=== PATIENT | male | born 1935 | race Two or more races ===

== ENCOUNTER 2025-01-17 02:07 | Inpatient (IN) | payer OTHER, MEDICARE ==
[~2025-01-17] VITALS: Ht 167.6 cm; Wt 85.5 kg
[2025-01-17] VITALS (7 sets, daily range): BP systolic 85–101; BP diastolic 49–58; PULSE 63–82; RESP 16–18; TEMP 98; O2SAT 99–100
[2025-01-17 03:04] LABS: Hematocrit 36.2 % (41.0-53.0); Hemoglobin 11.3 g/dL (13.5-17.5); Mean Corpuscular Hemoglobin 30.3 pg (28.0-32.0); Mean Corpuscular Volume 97.0 fL (80.0-100.0); Nucleated Red Blood Cells % 0.1 %
--- NOTE | 2025-01-17 03:11 | DVH ---
CHEST RADIOGRAPH Indication: aloc Technique: 1 view Comparison: None FINDINGS: Lines and Tubes: None Lungs: Scattered coarse reticular opacities most pronounced in the lung bases. No focal consolidatio n. Pleura: No effusion or pneumothorax. Cardiomediastinal contours: Upper normal heart size. Aortic atherosclerosis. Bones: No acute osseous abnormality. IMPRESSION: 1. Coarse bilateral interstitial opacities suggestive of edema or pneumonitis. No consolidation. Netta elizbaeth cardiomegaly.
--- NOTE | 2025-01-17 03:18 | DVH ---
EXAM: CT HEAD WITHOUT CONTRAST INDICATION: aloc TECHNIQUE: CT of the head without intravenous contrast. Radiation Dose Information: CT Dose: Dose-length product is 877 mGy*cm The dose indicators for CT are the volume Computed Tomography (CT) Dose Index (CTDIvol) and the Dose Length Product (DLP), and are measured in units of mGy and mGy-cm, respectively. These indicators are not patient dose, but values generated from the CT scanner acquisition factors. The report includes radiation exposure data for exposures received during this examination. COMPARISON: None FINDINGS: There is no evidence of acute intracranial hemorrhage, extra-axial collection, mass effect, midline s hift, herniation or hydrocephalus. The ventricles, sulci and cisterns are age appropriate. The patel-white differentiation is intact. Patchy periventricular and subcortical white matter hypoattenuation is nonspecific but may be related to small vessel ischemic disease. Age-related cerebral atrophy. The visualized paranasal sinuses and mastoid air cells are clear. The surrounding soft tissues and osseous structures are unremarkable. IMPRESSION: 1. No acute intracranial abnormality.
[2025-01-17 03:19] LABS: Alanine Aminotransferase < 9 U/L (7-40); Albumin 3.6 g/dL (3.2-4.8); Alkaline Phosphatase 178 U/L (46-116); Anion Gap 11 (5-15); BUN/Creatinine Ratio 3.3 (10.0-20.0); Bilirubin, Total 0.6 mg/dL (0.2-1.0); Blood Urea Nitrogen 19 mg/dL (9-23); Calcium 7.8 mg/dL (8.7-10.4); Carbon Dioxide 26 mmol/L (20-31); Chloride 105 mmol/L (98-107); Glucose 114 mg/dL (74-106); Potassium 3.5 mmol/L (3.5-5.1); Sodium 142 mmol/L (136-145); Total Protein 6.3 g/dL (5.7-8.2)
--- NOTE | 2025-01-17 04:11 | ED.PDOC ---
History of Present Illness HPI Comments 89 y/o M is BIBA from home for c/c AMS and headache. 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 Per EMS report, patient's /international guest coordinator called for 5x day history of headache. Today patient was noted to be lethargic and somnolent. He is reportedly normally extremely talkative. Usual baseline reported to be A&Ox4. No reported fever, urinary symptoms, nausea, vomiting, diarrhea, chest pain, shortness of breath, or further associated symptoms. Chief Complaint: ALOC Time Seen by MD: 02:20 Reviewed Notes: Nurses Notes, Charge Histotechnologist Notes, Medications, Allergies Allergies: Coded Allergies: NO KNOWN ALLERGIES (Unverified , 01/17/25) Information Source: Patient, Emergency Med Personnel Mode of Arrival: EMS Severity: Moderate Timing: Hours Duration: Since onset Prehospital treatment: 12 Lead EKG, Accucheck, Cotton Weigher Operator Past Medical History PAST MEDICAL HISTORY: AFIB, CVA, DM, HTN Surgical History: Denies all surgeries Family History Family History: Unknown Social History Smoker: Non-Smoker Alcohol: Denies ETOH Use Drugs: Denies Drug Use Lives In: Home, Assisted Care Unable to Obtain due to: Altered Mental Status Physical Exam General Appearance: No Apparent Distress, Other (Somnolent) HEENT: Other (Pupils and face symmetric. Moist mucous membranes.) Neck: Full Range of Motion, Normal Inspection Respiratory: Lungs Clear, No Accessory Muscle Use, No Respiratory Distress, Normal Breath Sounds Cardiovascular: No Edema, No JVD, Regular Rate/Rhythm Breast Exam: Deferred Gastrointestinal: Non Tender, Soft Genitalia: Deferred Pelvic: Deferred Rectal: Deferred Extremities: Normal inspection, Normal range of motion, Non-tender Neurologic: Other (Very somnolent, moves all extremities, minimally verbal) Cerebellar Function: NOT DONE Reflexes: NOT DONE Skin: Dry, Normal Color, Warm Lymphatic: NOT DONE Was a procedure done? Was a procedure done?: No EKG EKG : Comments AFib, rate 72, QRS prolonged at 152, QTC prolonged at 529, left axis deviation, old inferior infarct, nonspecific T change. Differential Dx Considerations may include: CVA, TIA, metabolic Encephalopathy, drug overdose, dehydration, electrolyte imbalance, viral syndrome, UTI, among others X-Ray, Labs, Meds, VS Vital Signs Date Time Temp Pulse Resp B/P (MAP) Pulse Ox O2 Delivery O2 Flow Rate FiO2 01/17/25 02:21 72 01/17/25 02:13 99.8 85 16 109/56 98 99.8 Lab Test 01/17/25 02:51 Range/Units White Blood Count 6.6 4.4-10.8 10^3/uL Red Blood Count 3.73 L 4.5-5.90 10^6/uL Hemoglobin 11.3 L 13.5-17.5 g/dL Hematocrit 36.2 L 41.0-53.0 % Mean Corpuscular Volume 97.0 80.0-100.0 fL Mean Corpuscular Hemoglobin 30.3 28.0-32.0 pg Mean Corpuscular Hemoglobin Concent 31.2 L 32.0-36.0 g/dL Red Cell Distribution Width 19.0 H 11.8-14.3 % Platelet Count 127 L 140-450 10^3/uL Mean Platelet Volume 9.0 6.9-10.8 fL Neutrophils (%) (Auto) 57.8 37.0-80.0 % Lymphocytes (%) (Auto) 19.6 10.0-50.0 % Monocytes (%) (Auto) 17.8 H 0.0-12.0 % Eosinophils (%) (Auto) 4.1 0.0-7.0 % Basophils (%) (Auto) 0.7 0.0-2.0 % Neutrophils # (Auto) 3.8 1.6-8.6 10 ^3/uL Lymphocytes # (Auto) 1.3 0.4-5.4 10 ^3/uL Monocytes # (Auto) 1.2 0-1.3 10 ^3/uL Eosinophils # (Auto) 0.3 0-0.8 10 ^3/uL Basophils # (Auto) 0 0-0.2 10 ^3/uL Nucleated Red Blood Cells 0.1 % Sodium Level 142 136-145 mmol/L Potassium Level 3.5 3.5-5.1 mmol/L Chloride Level 105 98-107 mmol/L Carbon Dioxide Level 26 20-31 mmol/L Anion Gap 11 5-15 Blood Urea Nitrogen 19 9-23 mg/dL Creatinine 5.74 H 0.700-1.30 mg/dL Glomerular Filtration Rate Calc 9 >90 mL/min BUN/Creatinine Ratio 3.3 L 10.0-20.0 Serum Glucose 114 H 74-106 mg/dL Lactic Acid Level 1.2 0.4-2.0 mmol/L Calcium Level 7.8 L 8.7-10.4 mg/dL Total Bilirubin 0.6 0.2-1.0 mg/dL Aspartate Amino Transferase (AST) 24 13-40 U/L Alanine Aminotransferase (ALT) < 9 7-40 U/L Alkaline Phosphatase 178 H 46-116 U/L Troponin I High Sensitivity 13 </=54 ng/L Total Protein 6.3 5.7-8.2 g/dL Albumin 3.6 3.2-4.8 g/dL Plasma/Serum Blood Alcohol < 3.0 <10 mg/dL [place] [id number] Ph: [phone] DIAGNOSTIC IMAGING Diagnostic Imaging Report : [id number] Signed PATIENT: CINDY CORTES ACCT: [id number] UNIT: [id number] : 1935 LOC: ER ROOM / BED: / AGE / SEX: 89 / M ADM STATUS: REG ER SERVICE 6 ORDERING PHYSICIAN: LAURI DIOP MD PROCEDURE(s): HWOCT - HEAD WITHOUT CONTRAST REASON: aloc ORDER NUMBER(s): [id number], ACCESSION NUMBER(s): [id number] EXAM: CT HEAD WITHOUT CONTRAST INDICATION: aloc TECHNIQUE: CT of the head without intravenous contrast. Radiation Dose Information: CT Dose: Dose-length product is 877 mGy*cm The dose indicators for CT are the volume Computed Tomography (CT) Dose Index (CTDIvol) and the Dose Length Product (DLP), and are measured in units of mGy and mGy-cm, respectively. These indicators are not patient dose, but values generated from the CT scanner acquisition factors. The report includes radiation exposure data for exposures received during this examination. COMPARISON: None FINDINGS: There is no evidence of acute intracranial hemorrhage, extra-axial collection, mass effect, midline shift, herniation or hydrocephalus. The ventricles, sulci and cisterns are age appropriate. The patel-white differentiation is intact. Patchy periventricular and subcortical white matter hypoattenuation is nonspecific but may be related to small vessel ischemic disease. Age-related cerebral atrophy. The visualized paranasal sinuses and mastoid air cells are clear. The surrounding soft tissues and osseous structures are unremarkable. IMPRESSION: 1. No acute intracranial abnormality. ATED BY: PRADIP ANDREWS MD DICTATED DATE/TIME: 01/17/25316 SIGNED BY: PRADIP ANDREWS MD SIGNED DATE/TIME: 01/17/25316 CC: [place] [id number] Ph: [phone] DIAGNOSTIC IMAGING Diagnostic Imaging Report : [id number] Signed PATIENT: CINDY CORTES ACCT: [id number] UNIT: [id number] : 1935 LOC: ER ROOM / BED: / AGE / SEX: 89 / M ADM STATUS: REG ER SERVICE 6 ORDERING PHYSICIAN: LAURI DIOP MD PROCEDURE(s): CXRP - CHEST PORTABLE REASON: aloc ORDER NUMBER(s): [id number], ACCESSION NUMBER(s): [id number] CHEST RADIOGRAPH Indication: aloc Technique: 1 view Comparison: None FINDINGS: Lines and Tubes: None Lungs: Scattered coarse reticular opacities most pronounced in the lung bases. No focal consolidation. Pleura: No effusion or pneumothorax. Cardiomediastinal contours: Upper normal heart size. Aortic atherosclerosis. Bones: No acute osseous abnormality. IMPRESSION: 1. Coarse bilateral interstitial opacities suggestive of edema or pneumonitis. No consolidation. Borderline cardiomegaly. 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 Coarse bilateral interstitial opacities suggestive of edema or pneumonitis. No consolidation. Borderline cardiomegaly. CBC unremarkable, basic metabolic panel remarkable for creatinine 5.74, lactate normal, troponin negative, BNP pending, ammonia, UA and urine drug screen pending Patient treated with the following in the ED: Rocephin 1 g IV, Zithromax 500 mg IV On re-evaluation, patient is somnolent but arousable. Vitals were stable. Plan is to admit the patient for IV antibiotics and neurology evaluation. Time of 1ST Reevaluation: 02:50 Reevaluation 1ST: Unchanged Patient Education/Counseling: Diagnosis, Treatment, Need For Follow Up Family Education/Counseling: No Family Present SEPSIS Sepsis Screen Date sepsis recognized/suspect: Jan 17, 2025 Time Sepsis recognized/suspect: 212 Recent Procedure: No On Antibiotic Therapy: No Respiratory Rate >20: No Heart Rate >90: No Temp<36 C (96.8 F) or >38.3 C: No SBP <90 or MAP <65 mmHG: No New Acute Mental Status Change: No Is the patient on CPAP, BIPAP,: No Physician Orders Urinalysis (01/17/25 02:27) Chest Portable (01/17/25 02:27) Head Without Contrast (01/17/25 02:27) Drug Screen (01/17/25 02:27) Cotton Weigher Operator (01/17/25 02:27) Blood Culture (01/17/25 02:27) Urine Bacterial Culture (01/17/25 02:27) Ammonia (01/17/25 02:27) Troponin-I Hs (01/17/25 03:27) Troponin-I Hs (01/17/25 05:27) Electrocardigram (01/17/25 02:36) Azithromycin 500mg/ 250ml (Zithromax 50 (01/17/25 05:45) B-Type Natriuretic Peptide (01/17/25 05:32) Vital Signs Date Time Temp Pulse Resp B/P (MAP) Pulse Ox O2 Delivery O2 Flow Rate FiO2 01/17/25 02:21 72 01/17/25 02:13 99.8 85 16 109/56 98 99.8 Laboratory Tests Test 01/17/25 02:51 Lactic Acid Level 1.2 mmol/L (0.4-2.0) White Blood Count 6.6 10^3/uL (4.4-10.8) Departure 1 Departure Time of Disposition: 05:33 Impression: Primary Impression: Pneumonitis Additional Impression: Metabolic encephalopathy Disposition: 09 ADMITTED INPATIENT Admit to: Tele Condition: Guarded Critical Care Note Critical Care Time?: No Stability Stability form required: No Heart Score Heart Score: Heart Score Response (Comments) Value History N/A 0 EKG N/A 0 Age N/A 0 Risk Factors N/A 0 Troponin N/A 0 Total 0 I personally scribed for LAURI DIOP MD ([email or web address]) on 01/17/25 at 04:11. Electronically submitted by Enzo Atkins [email or web address]). LAURI DIOP MD Jan 17, 2025 04:11
--- NOTE | 2025-01-17 08:03 | ECG ---
[facility] Test Date: 2025-01-17 Test Time: 02:21:15 Pat Name: KARINA CORTES Department: ED Room: [address] [place] [address] Gender: M Senior Quality Analyst: ED : 1935 Requested By: LAURI MUELLER Order Number: [id number] Reading MD: Howie Mac Measurements Intervals Counselor Rate: 72 P: 0 ND: 0 QRS: -134 QRSD: 152 T: 6 QT: 483 QTc: 529 Interpretive Statements Atrial fibrillation Right bundle branch block Inferior infarct, old Lateral leads are also involved Baseline wander in lead(s) V4 Electronically Signed On 01-17-2025 22:09:49 PDT by Howie Mac Please click the below link to view image of tracing.
[2025-01-17] MEDS ORDERED: DEXTROSE (50%) 50ML SYRG IV PRN (08:45)
--- NOTE | 2025-01-17 08:45 | DVHHP2 ---
History of Present Illness Reason for Visit: ALOC History of Present Illness Mahi Thompson is an 89-year-old male with past medical history of atrial fibrillation, hypertension, diabetes, and CVA who came to the hospital for altered level of consciousness. Patient is a poor historian and not able to provide much history. at the bedside states this weekend he was slurring a little and seemed a little confused. This morning he woke up complaining of se tara headache and requested to go to the hospital. 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 ROAD FORMS: CVA Renal/: Chronic renal failure (on HD) Endocrine: Diabetes Past Surgical History: Other (PTCA) Smoke: No ALCOHOL: none Drugs: None Lives: with Family Domestic Violence: Neg Review of Systems Constitutional: Yes: Weakness, Malaise, Other (headache); No: Fever, Chills, Sweats Eyes: No: Pain, Vision change, Conjunctivae inflammation, Eyelid inflammation, Other, Redness ENT: No: Ear pain, Ear discharge, Nose pain, Nose discharge, Nose congestion, Mouth pain, Mouth swelling, Throat pain, Throat swelling, Other Respiratory: No: Cough, Dry, Shortness of breath, SOB with excertion, Wheezing, Hemoptysis, Pleuritic Pain, Sputum, Wheezing, Other Cardiovascular: No: Chest Pain, Palpitations, Orthopnea, Paroxysmal Noc. Dyspnea, Edema, Lt Headedness, Other Gastrointestinal: No: Nausea, Vomiting, Abdominal Pain, Diarrhea, Constipation, Melena, Hematochezia, Other Genitourinary: No Dysuria, No Frequency, No Incontinence, No Hematuria, No Retention, No Other Musculoskeletal: No: other, neck pain, shoulder pain, arm pain, back pain, hand pain, leg pain, foot pain Skin: No: Rash, Lesions, Jaundice, Bruising, Other Neurological: Confusion; No: Weakness, Numbness, Incoordination, Change in s peech, Seizures, Other Allergies: Coded Allergies: NO KNOWN ALLERGIES (Unverified , 01/17/25) Exam Vital Signs Vital Signs Date Time Temp Pulse Resp B/P (MAP) Pulse Ox O2 Delivery O2 Flow Rate FiO2 01/17/25 07:39 70 16 103/53 (70) 100 01/17/25 07:39 Room Air* 0 21 01/17/25 02:13 99.8 99.8 General Appearance: Alert, mild distress, Other (Oriented x 2) HEENT: Atraumatic, PERRLA Respiratory: Other (Diminshed breath sounds) Cardiovascular: Normal S1, Normal S2 Abdominal: Normal bowel sounds, Soft, No tenderness Extremities: No clubbing, No cyanosis, Normal pulses Skin: No rashes, No breakdown Neuro: Other (Usually ambulates with cane or walker, too weak at this time to ambulate) Psych/Mental Status: Other (confused) Labs/Xrays Labs Test 01/17/25 07:55 01/17/25 02:51 Range/Units White Blood Count 6.6 4.4-10.8 10^3/uL Red Blood Count 3.73 L 4.5-5.90 10^6/uL Hemoglobin 11.3 L 13.5-17.5 g/dL Hematocrit 36.2 L 41.0-53.0 % Mean Corpuscular Volume 97.0 80.0-100.0 fL Mean Corpuscular Hemoglobin 30.3 28.0-32.0 pg Mean Corpuscular Hemoglobin Concent 31.2 L 32.0-36.0 g/dL Red Cell Distribution Width 19.0 H 11.8-14.3 % Platelet Count 127 L 140-450 10^3/uL Mean Platelet Volume 9.0 6.9-10.8 fL Neutrophils (%) (Auto) 57.8 37.0-80.0 % Lymphocytes (%) (Auto) 19.6 10.0-50.0 % Monocytes (%) (Auto) 17.8 H 0.0-12.0 % Eosinophils (%) (Auto) 4.1 0.0-7.0 % Basophils (%) (Auto) 0.7 0.0-2.0 % Neutrophils # (Auto) 3.8 1.6-8.6 10 ^3/uL Lymphocytes # (Auto) 1.3 0.4-5.4 10 ^3/uL Monocytes # (Auto) 1.2 0-1.3 10 ^3/uL Eosinophils # (Auto) 0.3 0-0.8 10 ^3/uL Basophils # (Auto) 0 0-0.2 10 ^3/uL Nucleated Red Blood Cells 0.1 % Sodium Level 142 136-145 mmol/L Potassium Level 3.5 3.5-5.1 mmol/L Chloride Level 105 98-107 mmol/L Carbon Dioxide Level 26 20-31 mmol/L Anion Gap 11 5-15 Blood Urea Nitrogen 19 9-23 mg/dL Creatinine 5.74 H 0.700-1.30 mg/dL Glomerular Filtration Rate Calc 9 >90 mL/min BUN/Creatinine Ratio 3.3 L 10.0-20.0 Serum Glucose 114 H 74-106 mg/dL Lactic Acid Level 1.2 0.4-2.0 mmol/L Calcium Level 7.8 L 8.7-10.4 mg/dL Total Bilirubin 0.6 0.2-1.0 mg/dL Aspartate Amino Transferase (AST) 24 13-40 U/L Alanine Aminotransferase (ALT) < 9 7-40 U/L Alkaline Phosphatase 178 H 46-116 U/L Total Protein 6.3 5.7-8.2 g/dL Albumin 3.6 3.2-4.8 g/dL Plasma/Serum Blood Alcohol < 3.0 <10 mg/dL CHEST RADIOGRAPH FINDINGS: Lines and Tubes: None Lungs: Scattered coarse reticular opacities most pronounced in the lung bases. No focal consolidation. Pleura: No effusion or pneumothorax. Cardiomediastinal contours: Upper normal heart size. Aortic atherosclerosis. Bones: No acute osseous abnormality. IMPRESSION: 1. Coarse bilateral interstitial opacities suggestive of edema or pneumonitis. No consolidation. Borderline cardiomegaly. EXAM: CT HEAD WITHOUT CONTRAST COMPARISON: None FINDINGS: There is no evidence of acute intracranial hemorrhage, extra-axial collection, mass effect, midline shift, herniation or hydrocephalus. The ventricles, sulci and cisterns are age appropriate. The patel-white differentiation is intact. Patchy periventricular and subcortical white matter hypoattenuation is nonspecific but may be related to small vessel ischemic disease. Age-related cerebral atrophy. The visualized paranasal sinuses and mastoid air cells are clear. The surrounding soft tissues and osseous structures are unremarkable. IMPRESSION: 1. No acute intracranial abnormality. SEPSIS Sepsis Screen Date sepsis recognized/suspect: Jan 17, 2025 Time Sepsis recognized/suspect: 0739 Recent Procedure: No On Antibiotic Therapy: No Respiratory Rate >20: No Heart Rate >90: No Temp<36 C (96.8 F) or >38.3 C: No SBP <90 or MAP <65 mmHG: No New Acute Mental Status Change: Yes Is the patient on CPAP, BIPAP,: No Physician Orders Urinalysis (01/17/25 02:27) Chest Portable (01/17/25 02:27) Head Without Contrast (01/17/25 02:27) Drug Screen (01/17/25 02:27) Radius Corner Machine Operator (01/17/25 02:27) Blood Culture (01/17/25 02:27) Urine Bacterial Culture (01/17/25 02:27) Ammonia (01/17/25 02:27) Troponin-I Hs (01/17/25 03:27) Troponin-I Hs (01/17/25 05:27) B-Type Natriuretic Peptide (01/17/25 05:32) Vital Signs Date Time Temp Pulse Resp B/P (MAP) Pulse Ox O2 Delivery O2 Flow Rate FiO2 01/17/25 07:39 70 16 103/53 (70) 100 01/17/25 07:39 70 16 100 Room Air* 0 21 01/17/25 02:21 72 01/17/25 02:13 99.8 85 16 109/56 98 99.8 Laboratory Tests Test 01/17/25 02:51 Lactic Acid Level 1.2 mmol/L (0.4-2.0) White Blood Count 6.6 10^3/uL (4.4-10.8) Assessment/Plan Assessment/Plan Assessment: Metabolic encephalopathy, Pneumonitis, ESRD on HD, Possible pneumonia, Hypertension, Diabetes, Plan: Admit to Med-Surg, Nephrology consult, IV antibiotics, Breathing treatments as needed, Accu checks Q AC&HS with sliding scale, Physical therapy evaluation, Home medications reconciled, Plan discussed with: Patient, Spouse Date of Service: Jan 17, 2025 Billing Provider: JAVY STONE Common Visit Codes: [id number] INP/OBS CARE (MOD) JAVY STONE Jan 17, 2025 08:45
[2025-01-17] MEDS: cefTRIAXone 1GM/50ML D5W 50 ML IV ONE (09:50)
[2025-01-17] MEDS: AZITHROMYCIN 500MG/ 250ML 250 ML IV ONE (10:30)
[2025-01-17] MEDS: ACCU-CHEK COMFORT CURVE STRIP VI SCH (11:30)
[2025-01-17] MEDS: InsuLIN REG 1unit/0.01ml Soln (100units/ml) SC SCH ×2 (11:30→22:00)
--- NOTE | 2025-01-17 13:27 | DVHPN2 ---
Subjective 89-year-old male who was brought to the hospital due to confusion for few days He fell a week ago He was fed and shortness of breaths and some cough Changes from previous H/P or p: Changes Eyes: No Pain, No Vision change, No Conjunctivae inflammation, No Eyelid inflammation, No Other, No Redness ENT: No Ear pain, No Ear discharge, No Nose pain, No Nose discharge, No Nose congestion, No Mouth pain, No Mouth swelling, No Throat pain, No Throat swelling, No Other Cardiovascular: No Chest Pain, No Palpitations, No Orthopnea, No Paroxysmal Noc. Dyspnea, No Edema, No Lt Headedness, No Other Respiratory: No Cough, No Dry, No Shortness of breath, No SOB with excertion, No Wheezing, No Hemoptysis, No Pleuritic Pain, No Sputum, No Other Gastrointestinal: No Nausea, No Vomiting, No Abdominal Pain, No Diarrhea, No Constipation, No Melena, No Hematochezia, No Other Genitourinary: No Dysuria, No Frequency, No Incontinence, No Hematuria, No Retention, No Other Musculoskeletal: No other, No neck pain, No shoulder pain, No arm pain, No back pain, No hand pain, No leg pain, No foot pain Skin: No Rash, No Lesions, No Jaundice, No Bruising, No Other Objective Vitals Vital Signs Date Time Temp Pulse Resp B/P (MAP) Pulse Ox O2 Delivery O2 Flow Rate FiO2 01/17/25 12:30 71 15 102/52 (69) 99 01/17/25 07:39 Room Air* 0 21 01/17/25 02:13 99.8 99.8 General Appearance: Alert, Oriented X3, Cooperative Lungs: Clear to auscultation, Normal air movement Cardiovascular: Regular rate, Normal S1, Normal S2 Abdomen: Normal bowel sounds, Soft, No tenderness Extremities: No edema Medications Current Medications Medications Dose Ordered Sig/Dwight Route Start Time Stop Time Status Last Admin Dose Admin Sodium Chloride 10 ml Q8HR IV 01/17/25 14:00 Acetaminophen/ Hydrocodone Bitart 1 tab Q4HP PRN PO 01/17/25 08:30 Ondansetron HCl 4 mg Q4HP PRN IV 01/17/25 08:30 Docusate Sodium 100 mg BIDPRN PRN PO 01/17/25 08:30 Acetaminophen 650 mg Q6HP PRN PO 01/17/25 08:30 Diagnostic Test (Pha) 1 strip ACHS 01/17/25 11:30 01/17/25 11:30 1 STRIP Insulin Human Regular HS SC 01/17/25 22:00 Insulin Human Regular AC SC 01/17/25 11:30 Dextrose 50 ml UD PRN IV 01/17/25 08:45 Ceftriaxone Sodium 50 ml @ 100 mls/hr DAILY@09 IV 01/18/25 09:00 Doxycycline Hyclate 100 ml @ 100 mls/hr BID IV 01/17/25 22:00 Laboratory Results Laboratory Tests 01/17/25 02:51 Chemistry Test 01/17/25 02:51 Albumin 3.6 g/dL (3.2-4.8) Calcium Level 7.8 mg/dL (8.7-10.4) L Total Protein 6.3 g/dL (5.7-8.2) Cardiac Markers Test 01/17/25 11:21 B-Type Natriuretic Peptide 727.46 pg/mL (0-100) LFT Test 01/17/25 02:51 Alanine Aminotransferase (ALT) < 9 U/L (7-40) Alkaline Phosphatase 178 U/L (46-116) H Aspartate Amino Transferase (AST) 24 U/L (13-40) Total Bilirubin 0.6 mg/dL (0.2-1.0) Assessment/Plan Assessment/Plan Acute metabolic encephalopathy Bilateral pneumonia End-stage renal disease on hemodialysis Hypertension Atrial fibrillation Old CVA Type 2 diabetes Chronic anemia of chronic kidney disease Plan IV antibiotics Rocephin and doxycycline Nephrology consult for dialysis Watch closely Physical therapy evaluation Discussed with the at the bedside Full code Advance directives discussed for 18 minutes Plan discussed with: Patient My Orders Orders - IONA CARBAJAL MD Procedure Category Date Status Time *[facility]. [facility] -[facility] CONS 01/17/25 Verified Jennifer 13:23 Date of Service: Jan 17, 2025 Billing Provider: IONA CARBAJAL MD Common Visit Codes: [id number] INP/OBS CARE(HIGH) Secondary Visit Codes: [id number] CARE PLAN 30 MINUTES IONA CARBAJAL MD Jan 17, 2025 13:27
[2025-01-17] MEDS: SODIUM CHLOR 0.9% PF (SALINE LOCK) 10ML VIAL/SYR IV SCH (14:25)
--- NOTE | 2025-01-17 14:41 | DVHINCON2 ---
Date of service: Jan 17, 2025 Referring Physician Patrica LEONARD Reason for Consultation End-stage renal disease management History of Present Illness 89-year-old patient with significant history of end-stage renal disease on hemodialysis Friday with last dialysis on Friday, atrial fibrillation, hypertension, CVA, diabetes type 2, hyperlipidemia who presents to the hospital because of altered mental status and complaining also of headache and mild shortness of breath. The patient is accompanied by his who is at bedside. Evaluation revealed no acute intracranial process, chest x-ray with pulmonary edema and labs consistent with end-stage renal disease status. Past Medical History End-stage renal disease, hypertension, hyperlipidemia, CVA, anemia Past Surgical History Av fistula creation Allergies: Coded Allergies: NO KNOWN ALLERGIES (Unverified , 01/17/25) Current Medications Current Medications Medications (Trade) Dose Ordered Sig/Dwight Route PRN Reason Start Time Stop Time Status Last Admin Sodium Chloride (Saline Lock Ns) 10 ml Q8HR IV 01/17/25 14:00 01/17/25 14:25 Acetaminophen/ Hydrocodone Bitart ([place] 5/325MG Tab) 1 tab Q4HP PRN PO MODERATE PAIN (4-6 PAIN SCALE) 01/17/25 08:30 Ondansetron HCl (Zofran) 4 mg Q4HP PRN IV NAUSEA / VOMITING 01/17/25 08:30 Docusate Sodium (Colace Capsule) 100 mg BIDPRN PRN PO FOR CONSTIPATION 01/17/25 08:30 Acetaminophen (Tylenol Tablet) 650 mg Q6HP PRN PO PAIN SCALE 1-3 OR TEMP>100.4 01/17/25 08:30 Diagnostic Test (Pha) (Accu-Chek Comfort Curve T) 1 strip ACHS 01/17/25 11:30 01/17/25 11:30 Insulin Human Regular (InsuLIN R) HS SC 01/17/25 22:00 Insulin Human Regular (InsuLIN R) AC SC 01/17/25 11:30 Dextrose 50 ml UD PRN IV Blood Sugar LESS THAN 60 01/17/25 08:45 Azithromycin 250 ml @ 125 mls/hr DAILY IV 01/18/25 10:00 01/17/25 10:21 DC Ceftriaxone Sodium 50 ml @ 100 mls/hr DAILY@09 IV 01/18/25 09:00 Doxycycline Hyclate 100 ml @ 100 mls/hr BID IV 01/17/25 22:00 Family History Unable to obtain patient is confused Social History He lives with his denies any smoking alcohol or drug abuse Review of Systems HEENT: Oral mucosa dry Neck no JVD Cardiovascular: Denies for chest pain denies orthopnea or PND Respiratory: Positive for or shortness of breath Gastrointestinal: Denies for nausea vomiting Musculoskeletal: Denies myalgias Neurological: Positive for generalized weakness, confusion Dermatological: Denies any rash The rest of the review of systems were reviewed pertinent positives and pertinent negatives are as per HPI up to 12 points review of systems H&P Exam Vital Signs/I&O Vital Sign Date Time Temp Pulse Resp B/P (MAP) Pulse Ox O2 Delivery O2 Flow Rate FiO2 01/17/25 12:30 71 15 102/52 (69) 99 01/17/25 07:39 Room Air* 0 21 01/17/25 02:13 99.8 99.8 Physical Exam HEENT: No evidence of JVD, no oral ulcers. Pulmonary: Lungs are clear on auscultation bilaterally Cardiovascular S1-S2, no S3 or S4 Abdomen: Bowel sounds positive, soft no rebound tenderness Skin: No rash Neurological: Alert, disoriented Labs/Diagnostic Data Labs/Diagnostic Data Laboratory Tests Test 01/17/25 11:21 01/17/25 07:55 01/17/25 02:51 Range/Units Ammonia < 10 L 11-32 umol/L Troponin I High Sensitivity 18 14 13 </=54 ng/L B-Type Natriuretic Peptide 727.46 0-100 pg/mL White Blood Count 6.6 4.4-10.8 10^3/uL Red Blood Count 3.73 L 4.5-5.90 10^6/uL Hemoglobin 11.3 L 13.5-17.5 g/dL Hematocrit 36.2 L 41.0-53.0 % Mean Corpuscular Volume 97.0 80.0-100.0 fL Mean Corpuscular Hemoglobin 30.3 28.0-32.0 pg Mean Corpuscular Hemoglobin Concent 31.2 L 32.0-36.0 g/dL Red Cell Distribution Width 19.0 H 11.8-14.3 % Platelet Count 127 L 140-450 10^3/uL Mean Platelet Volume 9.0 6.9-10.8 fL Neutrophils (%) (Auto) 57.8 37.0-80.0 % Lymphocytes (%) (Auto) 19.6 10.0-50.0 % Monocytes (%) (Auto) 17.8 H 0.0-12.0 % Eosinophils (%) (Auto) 4.1 0.0-7.0 % Basophils (%) (Auto) 0.7 0.0-2.0 % Neutrophils # (Auto) 3.8 1.6-8.6 10 ^3/uL Lymphocytes # (Auto) 1.3 0.4-5.4 10 ^3/uL Monocytes # (Auto) 1.2 0-1.3 10 ^3/uL Eosinophils # (Auto) 0.3 0-0.8 10 ^3/uL Basophils # (Auto) 0 0-0.2 10 ^3/uL Nucleated Red Blood Cells 0.1 % Sodium Level 142 136-145 mmol/L Potassium Level 3.5 3.5-5.1 mmol/L Chloride Level 105 98-107 mmol/L Carbon Dioxide Level 26 20-31 mmol/L Anion Gap 11 5-15 Blood Urea Nitrogen 19 9-23 mg/dL Creatinine 5.74 H 0.700-1.30 mg/dL Glomerular Filtration Rate Calc 9 >90 mL/min BUN/Creatinine Ratio 3.3 L 10.0-20.0 Serum Glucose 114 H 74-106 mg/dL Lactic Acid Level 1.2 0.4-2.0 mmol/L Calcium Level 7.8 L 8.7-10.4 mg/dL Total Bilirubin 0.6 0.2-1.0 mg/dL Aspartate Amino Transferase (AST) 24 13-40 U/L Alanine Aminotransferase (ALT) < 9 7-40 U/L Alkaline Phosphatase 178 H 46-116 U/L Total Protein 6.3 5.7-8.2 g/dL Albumin 3.6 3.2-4.8 g/dL Plasma/Serum Blood Alcohol < 3.0 <10 mg/dL Chest x-ray pulmonary edema, CT scan of the head without contrast no acute intracranial process Assessment Assessment: End-stage renal disease on hemodialysis Friday Acute metabolic encephalopathy Pulmonary edema Concerns for pneumonia Hypertension History of CVA Anemia Plan Dialysis today and Friday Fluid restriction less than 1 L per day Antibiotics have been ordered by primary team PT evaluation recommended Low-potassium diet Monitor CMP and CVC daily Thank you very much for allowing us to participate in the care of this patient Plan discussed with: Patient, Spouse KISHAN BARNES MD Jan 17, 2025 14:41
[2025-01-17] MEDS: SODIUM CHL 0.9% 1000 ML BAG XX ONE (14:45)
[2025-01-17] MEDS ORDERED: IPRATROPIUM BROM 0.5 MG/2.5ML INH SOL NEB PRN (16:15)
[2025-01-17] MEDS ORDERED: ALBUTEROL SULF 2.5 MG/0.5ML(0.5%) NEB SOLN NEB PRN (16:15)
[2025-01-17] MEDS ORDERED: NIFE1TAB30 PO (16:19)
[2025-01-17] MEDS ORDERED: ATOR20TA50 PO (16:19)
[2025-01-17] MEDS ORDERED: METO-289 PO (16:19)
[2025-01-17] MEDS ORDERED: APIX2.5T PO (16:19)
[2025-01-17] MEDS ORDERED: ASPI81CH49 PO (16:19)
[2025-01-17] MEDS: HYDROcodone-ACET 5/325MG TAB PO PRN (20:42)
[2025-01-17] MEDS: APIXABAN 2.5 MG TAB PO SCH (21:41)
[2025-01-17] MEDS: ATORVASTATIN 20 MG TAB PO SCH (21:41)
[2025-01-17] MEDS: DOXYCYCLINE 100MG/100ML 100 ML IV SCH (21:42)
[2025-01-18] VITALS (9 sets, daily range): BP systolic 106–153; BP diastolic 65–76; PULSE 62–79; RESP 16–18; TEMP 97.5–98.3; O2SAT 96–100
[2025-01-18] MEDS ORDERED: VANCOMYCIN PER PHARMACY 0 MG IV SCH (09:30)
[2025-01-18] MEDS ORDERED: VANCOMYCIN 1GM/200ML PM 200 ML IV ONE (09:30)
--- NOTE | 2025-01-18 09:32 | DVHPN2 ---
Subjective He seems to be more alert and oriented today His blood culture is growing Gram-positive cocci in clusters and pairs Scheduled for dialysis today Changes from previous H/P or p: Changes Eyes: No Pain, No Vision change, No Conjunctivae inflammation, No Eyelid inflammation, No Other, No Redness ENT: No Ear pain, No Ear discharge, No Nose pain, No Nose discharge, No Nose congestion, No Mouth pain, No Mouth swelling, No Throat pain, No Throat swelling, No Other Cardiovascular: No Chest Pain, No Palpitations, No Orthopnea, No Paroxysmal Noc. Dyspnea, No Edema, No Lt Headedness, No Other Respiratory: No Cough, No Dry, No Shortness of breath, No SOB with excertion, No Wheezing, No Hemoptysis, No Pleuritic Pain, No Sputum, No Other Gastrointestinal: No Nausea, No Vomiting, No Abdominal Pain, No Diarrhea, No Constipation, No Melena, No Hematochezia, No Other Genitourinary: No Dysuria, No Frequency, No Incontinence, No Hematuria, No Retention, No Other Musculoskeletal: No other, No neck pain, No shoulder pain, No arm pain, No back pain, No hand pain, No leg pain, No foot pain Skin: No Rash, No Lesions, No Jaundice, No Bruising, No Other Objective Vitals Vital Signs Date Time Temp Pulse Resp B/P (MAP) Pulse Ox O2 Delivery O2 Flow Rate FiO2 01/18/25 08:47 97.9 79 16 120/76 (91) 100 97.9 01/18/25 06:30 Nasal Cannula 2.0 01/18/25 06:30 28 Intake/Output Intake and Output 01/18/25 07:00 Intake Total 520 ml Balance 520 ml Intake Oral 120 ml IV Total 400 ml General Appearance: Alert, Oriented X3, Cooperative Lungs: Clear to auscultation, Normal air movement Cardiovascular: Regular rate, Normal S1, Normal S2 Abdomen: Normal bowel sounds, Soft, No tenderness Extremities: No edema Medications Current Medications Medications Dose Ordered Sig/Dwight Route Start Time Stop Time Status Last Admin Dose Admin Sodium Chloride 10 ml Q8HR IV 01/17/25 14:00 01/18/25 06:16 10 ML Acetaminophen/ Hydrocodone Bitart 1 tab Q4HP PRN PO 01/17/25 08:30 01/17/25 20:42 1 TAB Ondansetron HCl 4 mg Q4HP PRN IV 01/17/25 08:30 Docusate Sodium 100 mg BIDPRN PRN PO 01/17/25 08:30 Acetaminophen 650 mg Q6HP PRN PO 01/17/25 08:30 Diagnostic Test (Pha) 1 strip ACHS 01/17/25 11:30 01/18/25 06:15 1 STRIP Insulin Human Regular HS SC 01/17/25 22:00 Insulin Human Regular AC SC 01/17/25 11:30 Dextrose 50 ml UD PRN IV 01/17/25 08:45 Ceftriaxone Sodium 50 ml @ 100 mls/hr DAILY@09 IV 01/18/25 09:00 Doxycycline Hyclate 100 ml @ 100 mls/hr BID IV 01/17/25 22:00 01/17/25 21:42 100 MLS/HR Ipratropium [place] 0.5 mg Q4HPRN PRN NEB 01/17/25 16:15 Albuterol 2.5 mg Q4HPRN PRN NEB 01/17/25 16:15 Apixaban 2.5 mg BID PO 01/17/25 22:00 01/17/25 21:41 2.5 MG Atorvastatin Calcium 20 mg HS PO 01/17/25 22:00 01/17/25 21:41 20 MG Metoprolol Succinate 50 mg DAILY PO 01/18/25 10:00 Aspirin 81 mg DAILY PO 01/18/25 10:00 Nifedipine 60 mg DAILY PO 01/18/25 10:00 Laboratory Results Laboratory Tests 01/17/25 02:51 Cardiac Markers Test 01/17/25 11:21 B-Type Natriuretic Peptide 727.46 pg/mL (0-100) Microbiology Microbiology Date/Time Source Procedure Growth Status 01/17/25 07:55 Blood Blood Culture - Preliminary Resulted Assessment/Plan Assessment/Plan Acute metabolic encephalopathy Bilateral pneumonia End-stage renal disease on hemodialysis Hypertension Atrial fibrillation Old CVA Type 2 diabetes Chronic anemia of chronic kidney disease Plan IV antibiotics Rocephin and doxycycline Nephrology consult for dialysis Watch closely Physical therapy evaluation Discussed with the at the bedside Full code Advance directives discussed for 18 minutes 01/18/2025: Bacteremia: Add vancomycin Pneumonia: Continue doxycycline and Rocephin End-stage renal disease: Dialysis today Labs are not done today yet Generalized weakness: Physical therapy recommended SNF but the patient does not want to go to a SNF, he says he can walk We will do another PT evaluation Plan discussed with: Patient, Spouse My Orders Orders - IONA CARBAJAL MD Procedure Category Date Status Time Pt Request For Service PT 01/17/25 Logged 13:26 Date of Service: Jan 18, 2025 Billing Provider: IONA CARBAJAL MD Common Visit Codes: [id number] INP/OBS CARE(HIGH) IONA CARBAJAL MD Jan 18, 2025 09:32
[2025-01-18] MEDS ORDERED: AZITHROMYCIN 500MG/ 250ML 250 ML IV SCH (10:00)
[2025-01-18] MEDS: METOPROLOL SUCCINATE XL 50 MG TAB PO SCH (10:00)
[2025-01-18] MEDS: ASPirin-EC 81 mg tab PO SCH (10:00)
[2025-01-18] MEDS: cefTRIAXone 1GM/50ML D5W 50 ML IV SCH (10:00)
[2025-01-18] MEDS: SODIUM CHL 0.9% 1000 ML BAG XX ONE (10:45)
[2025-01-18 11:42] LABS: Hemoglobin 8.2 g/dL (13.5-17.5)
[2025-01-18 11:43] LABS: Hematocrit 31.1 % (41.0-53.0); Mean Corpuscular Hemoglobin 31.0 pg (28.0-32.0); Mean Corpuscular Volume 117.6 fL (80.0-100.0)
--- NOTE | 2025-01-18 11:53 | DVHPN2 ---
Progress Note Date Seen: Jan 18, 2025 Medical Necessity Reason Pt with a Central, PICC or Fol: No Subjective Changes from previous H/P or p: No Changes Objective vital signs Vital Sign Date Time Temp Pulse Resp B/P (MAP) Pulse Ox O2 Delivery O2 Flow Rate FiO2 01/18/25 10:00 96 Nasal Cannula* 2 28 01/18/25 08:47 97.9 79 16 120/76 (91) 97.9 Total Intake and Output 01/17/25 01/17/25 01/18/25 15:00 23:00 07:00 Intake Total 300 ml 220 ml Balance 300 ml 220 ml medications Current Medications Medications Dose Ordered Sig/Dwight Route Start Time Stop Time Status Last Admin Dose Admin Sodium Chloride 10 ml Q8HR IV 01/17/25 14:00 01/18/25 06:16 10 ML Acetaminophen/ Hydrocodone Bitart 1 tab Q4HP PRN PO 01/17/25 08:30 01/17/25 20:42 1 TAB Ondansetron HCl 4 mg Q4HP PRN IV 01/17/25 08:30 Docusate Sodium 100 mg BIDPRN PRN PO 01/17/25 08:30 Acetaminophen 650 mg Q6HP PRN PO 01/17/25 08:30 Diagnostic Test (Pha) 1 strip ACHS 01/17/25 11:30 01/18/25 06:15 1 STRIP Insulin Human Regular HS SC 01/17/25 22:00 Insulin Human Regular AC SC 01/17/25 11:30 Dextrose 50 ml UD PRN IV 01/17/25 08:45 Ceftriaxone Sodium 50 ml @ 100 mls/hr DAILY@09 IV 01/18/25 09:00 01/18/25 10:00 100 MLS/HR Doxycycline Hyclate 100 ml @ 100 mls/hr BID IV 01/17/25 22:00 01/18/25 10:49 100 MLS/HR Ipratropium [place] 0.5 mg Q4HPRN PRN NEB 01/17/25 16:15 Albuterol 2.5 mg Q4HPRN PRN NEB 01/17/25 16:15 Apixaban 2.5 mg BID PO 01/17/25 22:00 01/17/25 21:41 2.5 MG Atorvastatin Calcium 20 mg HS PO 01/17/25 22:00 01/17/25 21:41 20 MG Metoprolol Succinate 50 mg DAILY PO 01/18/25 10:00 Aspirin 81 mg DAILY PO 01/18/25 10:00 Nifedipine 60 mg DAILY PO 01/18/25 10:00 Vancomycin HCl 0 ml @ 0 mls/hr UD IV 01/18/25 09:30 UNV Examination: GENERAL:Abnormal, CVS:Normal, ABDOMEN:Normal laboratory and microbiology Laboratory Tests 01/18/25 11:15 Test 01/18/25 11:15 Range/Units Serum Glucose Pending Microbiology Date/Time Source Procedure Growth Status 01/17/25 07:55 Blood Blood Culture - Preliminary Resulted Problem List/Assessment/Plan Problem List/Assessment/Plan 89-year-old male with past medical history of end-stage renal disease on hemodialysis presents to the hospital complaining of weakness. Was found to have bacteremia. End-stage renal disease Sepsis secondary to Gram-positive bacteremia Anemia due to chronic kidney disease Patient is started on vancomycin, daily measure trough levels . Sepsis workup including echo to rule out endocarditis Hemodialysis today Epogen 3 times a week Renal diet Avoid hypotension Plan discussed with: Patient My Orders My Orders Orders - TETE ROBERTS MD Procedure Category Date Status Time *[facility] CONS 01/17/25 Transmitted -[place] 18:56 Hemodialysis Orders ORDERS 01/18/25 Transmitted 10:31 Dialysis Nursing RAVINDER 01/18/25 In Process Message 10:31 Document Fluid Input RAVINDER 01/18/25 In Process And Outpu 10:31 Acute Hepatitis Panel LAB 01/18/25 In Process 10:31 Total Time (mins): 25 TETE ROBERTS MD Jan 18, 2025 11:53
[2025-01-18 12:51] LABS: Total Cells Counted 100.0 (100)
[2025-01-18 12:52] LABS: Macrocytosis Marked
[2025-01-18 14:19] LABS: Alkaline Phosphatase 74 U/L (46-116); Anion Gap 10 (5-15); Glucose 74 mg/dL (74-106)
[2025-01-18 14:23] LABS: BUN/Creatinine Ratio 4.6 (10.0-20.0)
[2025-01-18 14:27] LABS: Alanine Aminotransferase < 9 U/L (7-40); Albumin 2.0 g/dL (3.2-4.8); Bilirubin, Total 0.2 mg/dL (0.2-1.0); Blood Urea Nitrogen 20 mg/dL (9-23); Carbon Dioxide 18 mmol/L (20-31); Chloride 120 mmol/L (98-107); Potassium 3.5 mmol/L (3.5-5.1); Sodium 148 mmol/L (136-145); Total Protein 3.5 g/dL (5.7-8.2)
[2025-01-18 14:29] LABS: Calcium 4.0 mg/dL (8.7-10.4)
[2025-01-18] MEDS: VANCOMYCIN 1GM/200ML PM 200 ML IV ONE (15:17)
[2025-01-18 21:02] LABS: Calcium 8.1 mg/dL (8.7-10.4)
[2025-01-18] MEDS: EPOETIN ALFA-EPBX 4,000 UNIT/ML VIAL SC SCH (21:11)
[2025-01-19] VITALS (9 sets, daily range): BP systolic 97–140; BP diastolic 53–76; PULSE 63–82; RESP 16–18; TEMP 97.6–98.1; O2SAT 98–100
[2025-01-19] MEDS: ACETAMINOPHEN 325 MG TAB PO PRN (00:01)
[2025-01-19 06:59] LABS: Hematocrit 35.0 % (41.0-53.0); Mean Corpuscular Hemoglobin 30.7 pg (28.0-32.0); Mean Corpuscular Volume 91.9 fL (80.0-100.0); Nucleated Red Blood Cells % 0.2 %
[2025-01-19 07:15] LABS: Hemoglobin 11.7 g/dL (13.5-17.5)
[2025-01-19 07:33] LABS: Iron 58.0 ug/dL (65-175)
[2025-01-19 07:37] LABS: Total Iron Binding Capacity 218.0 ug/dL (250-425)
[2025-01-19 08:01] LABS: Albumin 3.8 g/dL (3.2-4.8); Anion Gap 10 (5-15); BUN/Creatinine Ratio 3.7 (10.0-20.0); Blood Urea Nitrogen 19 mg/dL (9-23); Carbon Dioxide 29 mmol/L (20-31); Chloride 99 mmol/L (98-107); Glucose 80 mg/dL (74-106); Magnesium 1.8 mg/dL (1.6-2.6); Sodium 138 mmol/L (136-145); Total Protein 6.5 g/dL (5.7-8.2)
[2025-01-19 08:02] LABS: Bilirubin, Total 0.6 mg/dL (0.2-1.0)
[2025-01-19 08:07] LABS: Alanine Aminotransferase < 9 U/L (7-40); Alkaline Phosphatase 162 U/L (46-116); Calcium 8.0 mg/dL (8.7-10.4); Potassium 3.5 mmol/L (3.5-5.1)
--- NOTE | 2025-01-19 09:37 | DVHPN2 ---
Subjective Alert and oriented Generally weak Blood culture is still preliminary Changes from previous H/P or p: Changes Eyes: No Pain, No Vision change, No Conjunctivae inflammation, No Eyelid inflammation, No Other, No Redness ENT: No Ear pain, No Ear discharge, No Nose pain, No Nose discharge, No Nose congestion, No Mouth pain, No Mouth swelling, No Throat pain, No Throat swelling, No Other Cardiovascular: No Chest Pain, No Palpitations, No Orthopnea, No Paroxysmal Noc. Dyspnea, No Edema, No Lt Headedness, No Other Respiratory: No Cough, No Dry, No Shortness of breath, No SOB with excertion, No Wheezing, No Hemoptysis, No Pleuritic Pain, No Sputum, No Other Gastrointestinal: No Nausea, No Vomiting, No Abdominal Pain, No Diarrhea, No Constipation, No Melena, No Hematochezia, No Other Genitourinary: No Dysuria, No Frequency, No Incontinence, No Hematuria, No Retention, No Other Musculoskeletal: No other, No neck pain, No shoulder pain, No arm pain, No back pain, No hand pain, No leg pain, No foot pain Skin: No Rash, No Lesions, No Jaundice, No Bruising, No Other Objective Vitals Vital Signs Date Time Temp Pulse Resp B/P (MAP) Pulse Ox O2 Delivery O2 Flow Rate FiO2 01/19/25 07:35 100 Nasal Cannula 1.0 01/19/25 07:35 24 01/19/25 05:00 97.6 68 18 114/76 (89) 97.6 Intake/Output Intake and Output 01/19/25 07:00 Intake Total 2290 ml Balance 2290 ml Intake Oral 2040 ml IV Total 250 ml General Appearance: Alert, Oriented X3, Cooperative Lungs: Clear to auscultation, Normal air movement Cardiovascular: Regular rate, Normal S1, Normal S2 Abdomen: Normal bowel sounds, Soft, No tenderness Extremities: No edema Medications Current Medications Medications Dose Ordered Sig/Dwight Route Start Time Stop Time Status Last Admin Dose Admin Sodium Chloride 10 ml Q8HR IV 01/17/25 14:00 01/19/25 05:11 10 ML Acetaminophen/ Hydrocodone Bitart 1 tab Q4HP PRN PO 01/17/25 08:30 01/19/25 05:06 1 TAB Ondansetron HCl 4 mg Q4HP PRN IV 01/17/25 08:30 Docusate Sodium 100 mg BIDPRN PRN PO 01/17/25 08:30 Acetaminophen 650 mg Q6HP PRN PO 01/17/25 08:30 01/19/25 00:01 650 MG Diagnostic Test (Pha) 1 strip ACHS 01/17/25 11:30 01/19/25 05:11 1 STRIP Insulin Human Regular HS SC 01/17/25 22:00 Insulin Human Regular AC SC 01/17/25 11:30 Dextrose 50 ml UD PRN IV 01/17/25 08:45 Ceftriaxone Sodium 50 ml @ 100 mls/hr DAILY@09 IV 01/18/25 09:00 01/18/25 10:00 100 MLS/HR Doxycycline Hyclate 100 ml @ 100 mls/hr BID IV 01/17/25 22:00 01/18/25 21:15 100 MLS/HR Ipratropium [place] 0.5 mg Q4HPRN PRN NEB 01/17/25 16:15 Albuterol 2.5 mg Q4HPRN PRN NEB 01/17/25 16:15 Apixaban 2.5 mg BID PO 01/17/25 22:00 01/18/25 21:10 2.5 MG Atorvastatin Calcium 20 mg HS PO 01/17/25 22:00 01/18/25 21:10 20 MG Metoprolol Succinate 50 mg DAILY PO 01/18/25 10:00 01/18/25 18:15 50 MG Aspirin 81 mg DAILY PO 01/18/25 10:00 01/18/25 10:00 81 MG Nifedipine 60 mg DAILY PO 01/18/25 10:00 01/18/25 18:15 60 MG Vancomycin HCl 0 ml @ 0 mls/hr UD IV 01/18/25 09:30 Epoetin Tacho-epbx 4,000 unit TUTHSA SC 01/18/25 12:00 01/18/25 21:11 4,000 UNIT Laboratory Results Laboratory Tests 01/19/25 05:51 Chemistry Test 01/18/25 13:40 01/18/25 20:26 01/19/25 05:51 Albumin 2.0 g/dL (3.2-4.8) L 3.8 g/dL (3.2-4.8) Calcium Level 4.0 mg/dL (8.7-10.4) *L 8.1 mg/dL (8.7-10.4) #L 8.0 mg/dL (8.7-10.4) L Total Protein 3.5 g/dL (5.7-8.2) L 6.5 g/dL (5.7-8.2) Phosphorus Level 2.9 mg/dL (2.4-5.1) Magnesium Level 1.8 mg/dL (1.6-2.6) LFT Test 01/18/25 13:40 01/19/25 05:51 Alanine Aminotransferase (ALT) < 9 U/L (7-40) < 9 U/L (7-40) Alkaline Phosphatase 74 U/L (46-116) 162 U/L (46-116) H Aspartate Amino Transferase (AST) 31 U/L (13-40) 29 U/L (13-40) Total Bilirubin 0.2 mg/dL (0.2-1.0) 0.6 mg/dL (0.2-1.0) Microbiology Microbiology Date/Time Source Procedure Growth Status 01/17/25 07:55 Blood Blood Culture - Preliminary Resulted Assessment/Plan Assessment/Plan Acute metabolic encephalopathy Bilateral pneumonia End-stage renal disease on hemodialysis Hypertension Atrial fibrillation Old CVA Type 2 diabetes Chronic anemia of chronic kidney disease Sepsis Thrombocytopenia due to sepsis Plan IV antibiotics Rocephin and doxycycline Nephrology consult for dialysis Watch closely Physical therapy evaluation Discussed with the at the bedside Full code Advance directives discussed for 18 minutes 01/18/2025: Bacteremia: Add vancomycin Pneumonia: Continue doxycycline and Rocephin End-stage renal disease: Dialysis today Labs are not done today yet Generalized weakness: Physical therapy recommended SNF but the patient does not want to go to a SNF, he says he can walk We will do another PT evaluation 01/19/2025: Continue vancomycin Continue doxycycline and Rocephin Hemodialysis per nephrology Blood culture is still showing Gram-positive cocci in clusters and pairs Sepsis: Thrombocytopenia: Improving Plan discussed with: Patient, Other Date of Service: Jan 19, 2025 Billing Provider: IONA CARBAJAL MD Common Visit Codes: [id number] INP/OBS CARE(HIGH) IONA CARBAJAL MD Jan 19, 2025 09:37
[2025-01-19 11:17] LABS: Hepatitis B Surface Antigen Negative (Negative); Hepatitis C Antibody Negative (Negative)
[2025-01-19] MEDS: VANCOMYCIN 500MG/100ML D5W 100 ML IV ONE (18:12)
--- NOTE | 2025-01-19 19:14 | DVHPN2 ---
Progress Note Date Seen: Jan 19, 2025 Medical Necessity Reason Pt with a Central, PICC or Fol: No Subjective Patient reports: No new complaints Review of Systems: Deferred Objective vital signs Vital Sign Date Time Temp Pulse Resp B/P (MAP) Pulse Ox O2 Delivery O2 Flow Rate FiO2 01/19/25 17:00 97.8 66 18 102/53 (69) 99 97.8 01/19/25 10:00 Nasal Cannula 2.0 01/19/25 10:00 28 Total Intake and Output 01/18/25 01/18/25 01/19/25 15:00 23:00 07:00 Intake Total 650 ml 800 ml 1040 ml Balance 650 ml 800 ml 1040 ml medications Current Medications Medications Dose Ordered Sig/Dwight Route Start Time Stop Time Status Last Admin Dose Admin Sodium Chloride 10 ml Q8HR IV 01/17/25 14:00 01/19/25 13:37 10 ML Acetaminophen/ Hydrocodone Bitart 1 tab Q4HP PRN PO 01/17/25 08:30 01/19/25 13:16 1 TAB Ondansetron HCl 4 mg Q4HP PRN IV 01/17/25 08:30 Docusate Sodium 100 mg BIDPRN PRN PO 01/17/25 08:30 Acetaminophen 650 mg Q6HP PRN PO 01/17/25 08:30 01/19/25 00:01 650 MG Diagnostic Test (Pha) 1 strip ACHS 01/17/25 11:30 01/19/25 17:00 1 STRIP Insulin Human Regular HS SC 01/17/25 22:00 Insulin Human Regular AC SC 01/17/25 11:30 01/19/25 13:36 2 UNITS Dextrose 50 ml UD PRN IV 01/17/25 08:45 Ceftriaxone Sodium 50 ml @ 100 mls/hr DAILY@09 IV 01/18/25 09:00 01/19/25 09:45 100 MLS/HR Doxycycline Hyclate 100 ml @ 100 mls/hr BID IV 01/17/25 22:00 01/19/25 11:29 100 MLS/HR Ipratropium [place] 0.5 mg Q4HPRN PRN NEB 01/17/25 16:15 Albuterol 2.5 mg Q4HPRN PRN NEB 01/17/25 16:15 Apixaban 2.5 mg BID PO 01/17/25 22:00 01/19/25 09:46 2.5 MG Atorvastatin Calcium 20 mg HS PO 01/17/25 22:00 01/18/25 21:10 20 MG Metoprolol Succinate 50 mg DAILY PO 01/18/25 10:00 01/18/25 18:15 50 MG Aspirin 81 mg DAILY PO 01/18/25 10:00 01/19/25 09:46 81 MG Nifedipine 60 mg DAILY PO 01/18/25 10:00 01/18/25 18:15 60 MG Vancomycin HCl 0 ml @ 0 mls/hr UD IV 01/18/25 09:30 Epoetin [place]acho-epbx 4,000 unit TUTHSA SC 01/18/25 12:00 01/18/25 21:11 4,000 UNIT laboratory and microbiology Laboratory Tests 01/19/25 05:51 Test 01/19/25 05:51 Range/Units Serum Glucose 80 74-106 mg/dL Microbiology Date/Time Source Procedure Growth Status 01/17/25 07:55 Blood Blood Culture - Preliminary Resulted Problem List/Assessment/Plan Problem List/Assessment/Plan End-stage renal disease Sepsis secondary to Gram-positive bacteremia Anemia due to chronic kidney disease recs iv abx hd 01/20 Plan discussed with: Patient MANDEEP MENCHACA MD Jan 19, 2025 19:14
[2025-01-20] VITALS (9 sets, daily range): BP systolic 101–132; BP diastolic 53–75; PULSE 63–78; RESP 16–20; TEMP 97.1–97.6; O2SAT 99–100
[2025-01-20] MEDS: DOCUSATE SOD 100 MG CAP PO PRN (05:18)
[2025-01-20 06:54] LABS: Hematocrit 38.9 % (41.0-53.0); Hemoglobin 12.6 g/dL (13.5-17.5); Mean Corpuscular Hemoglobin 30.6 pg (28.0-32.0); Mean Corpuscular Volume 94.1 fL (80.0-100.0); Nucleated Red Blood Cells % 0.5 %
[2025-01-20 10:28] LABS: Potassium 3.7 mmol/L (3.5-5.1); Sodium 136 mmol/L (136-145)
[2025-01-20 10:29] LABS: Anion Gap 12 (5-15); Carbon Dioxide 27 mmol/L (20-31)
[2025-01-20 10:30] LABS: Calcium 7.9 mg/dL (8.7-10.4); Chloride 97 mmol/L (98-107)
[2025-01-20 10:34] LABS: BUN/Creatinine Ratio 5.1 (10.0-20.0)
[2025-01-20 10:39] LABS: Blood Urea Nitrogen 32 mg/dL (9-23); Glucose 119 mg/dL (74-106)
--- NOTE | 2025-01-20 13:09 | DVHPN2 ---
Subjective No new complaints Changes from previous H/P or p: Changes Eyes: No Pain, No Vision change, No Conjunctivae inflammation, No Eyelid inflammation, No Other, No Redness ENT: No Ear pain, No Ear discharge, No Nose pain, No Nose discharge, No Nose congestion, No Mouth pain, No Mouth swelling, No Throat pain, No Throat swelling, No Other Cardiovascular: No Chest Pain, No Palpitations, No Orthopnea, No Paroxysmal Noc. Dyspnea, No Edema, No Lt Headedness, No Other Respiratory: No Cough, No Dry, No Shortness of breath, No SOB with excertion, No Wheezing, No Hemoptysis, No Pleuritic Pain, No Sputum, No Other Gastrointestinal: No Nausea, No Vomiting, No Abdominal Pain, No Diarrhea, No Constipation, No Melena, No Hematochezia, No Other Genitourinary: No Dysuria, No Frequency, No Incontinence, No Hematuria, No Retention, No Other Musculoskeletal: No other, No neck pain, No shoulder pain, No arm pain, No back pain, No hand pain, No leg pain, No foot pain Skin: No Rash, No Lesions, No Jaundice, No Bruising, No Other Objective Vitals Vital Signs Date Time Temp Pulse Resp B/P (MAP) Pulse Ox O2 Delivery O2 Flow Rate FiO2 01/20/25 10:00 99 Nasal Cannula 2.0 01/20/25 10:00 28 01/20/25 09:12 74 111/65 01/20/25 08:51 97.4 20 97.4 Intake/Output Intake and Output 01/20/25 07:00 Intake Total 1350 ml Balance 1350 ml Intake Oral 1000 ml IV Total 350 ml General Appearance: Alert, Oriented X3, Cooperative Lungs: Clear to auscultation, Normal air movement Cardiovascular: Regular rate, Normal S1, Normal S2 Abdomen: Normal bowel sounds, Soft, No tenderness Extremities: No edema Medications Current Medications Medications Dose Ordered Sig/Dwight Route Start Time Stop Time Status Last Admin Dose Admin Sodium Chloride 10 ml Q8HR IV 01/17/25 14:00 01/20/25 05:18 10 ML Acetaminophen/ Hydrocodone Bitart 1 tab Q4HP PRN PO 01/17/25 08:30 01/20/25 09:32 1 TAB Ondansetron HCl 4 mg Q4HP PRN IV 01/17/25 08:30 Docusate Sodium 100 mg BIDPRN PRN PO 01/17/25 08:30 01/20/25 05:18 100 MG Acetaminophen 650 mg Q6HP PRN PO 01/17/25 08:30 01/19/25 00:01 650 MG Diagnostic Test (Pha) 1 strip ACHS 01/17/25 11:30 01/20/25 05:21 1 STRIP Insulin Human Regular HS SC 01/17/25 22:00 01/19/25 22:01 3 UNITS Insulin Human Regular AC SC 01/17/25 11:30 01/19/25 13:36 2 UNITS Dextrose 50 ml UD PRN IV 01/17/25 08:45 Ceftriaxone Sodium 50 ml @ 100 mls/hr DAILY@09 IV 01/18/25 09:00 01/20/25 09:05 100 MLS/HR Doxycycline Hyclate 100 ml @ 100 mls/hr BID IV 01/17/25 22:00 01/20/25 09:11 100 MLS/HR Ipratropium [place] 0.5 mg Q4HPRN PRN NEB 01/17/25 16:15 Albuterol 2.5 mg Q4HPRN PRN NEB 01/17/25 16:15 Apixaban 2.5 mg BID PO 01/17/25 22:00 01/20/25 09:16 2.5 MG Atorvastatin Calcium 20 mg HS PO 01/17/25 22:00 01/19/25 21:58 20 MG Metoprolol Succinate 50 mg DAILY PO 01/18/25 10:00 01/20/25 09:12 50 MG Aspirin 81 mg DAILY PO 01/18/25 10:00 01/20/25 09:08 81 MG Nifedipine 60 mg DAILY PO 01/18/25 10:00 01/20/25 09:07 60 MG Vancomycin HCl 0 ml @ 0 mls/hr UD IV 01/18/25 09:30 Epoetin Tacho-epbx 4,000 unit TUTHSA [place] 01/18/25 12:00 01/20/25 09:12 4,000 UNIT Laboratory Results Laboratory Tests 01/20/25 05:59 01/20/25 09:41 Chemistry Test 01/20/25 09:41 Calcium Level 7.9 mg/dL (8.7-10.4) L Microbiology Microbiology Date/Time Source Procedure Growth Status 01/17/25 07:55 Blood Blood Culture - Preliminary Resulted Assessment/Plan Assessment/Plan Acute metabolic encephalopathy Bilateral pneumonia End-stage renal disease on hemodialysis Hypertension Atrial fibrillation Old CVA Type 2 diabetes Chronic anemia of chronic kidney disease Sepsis Thrombocytopenia due to sepsis Plan IV antibiotics Rocephin and doxycycline Nephrology consult for dialysis Watch closely Physical therapy evaluation Discussed with the at the bedside Full code Advance directives discussed for 18 minutes 01/18/2025: Bacteremia: Add vancomycin Pneumonia: Continue doxycycline and Rocephin End-stage renal disease: Dialysis today Labs are not done today yet Generalized weakness: Physical therapy recommended SNF but the patient does not want to go to a SNF, he says he can walk We will do another PT evaluation 01/19/2025: Continue vancomycin Continue doxycycline and Rocephin Hemodialysis per nephrology Blood culture is still showing Gram-positive cocci in clusters and pairs Sepsis: Thrombocytopenia: Improving 01/20/2025: Continue vancomycin and IV antibiotics for the bacteremia Bacteremia: Culture is still pending Hemodialysis per nephrology Continue physical therapy Thrombocytopenia: Improved Discharge planning for tomorrow once the blood culture is finalized Plan discussed with: Patient, Spouse Date of Service: Jan 20, 2025 Billing Provider: IONA CARBAJAL MD Common Visit Codes: [id number] INP/OBS CARE(HIGH) IONA CARBAJAL MD Jan 20, 2025 13:09
--- NOTE | 2025-01-20 14:00 | DVHPN2 ---
Progress Note Date Seen: Jan 20, 2025 Medical Necessity Reason Pt with a Central, PICC or Fol: No Subjective Changes from previous H/P or p: No Changes Objective vital signs Vital Sign Date Time Temp Pulse Resp B/P (MAP) Pulse Ox O2 Delivery O2 Flow Rate FiO2 01/20/25 10:00 99 Nasal Cannula 2.0 01/20/25 10:00 28 01/20/25 09:12 74 111/65 01/20/25 08:51 97.4 20 97.4 Total Intake and Output 01/19/25 01/19/25 01/20/25 15:00 23:00 07:00 Intake Total 150 ml 800 ml 400 ml Balance 150 ml 800 ml 400 ml medications Current Medications Medications Dose Ordered Sig/Dwight Route Start Time Stop Time Status Last Admin Dose Admin Sodium Chloride 10 ml Q8HR IV 01/17/25 14:00 01/20/25 13:44 10 ML Acetaminophen/ Hydrocodone Bitart 1 tab Q4HP PRN PO 01/17/25 08:30 01/20/25 09:32 1 TAB Ondansetron HCl 4 mg Q4HP PRN IV 01/17/25 08:30 Docusate Sodium 100 mg BIDPRN PRN PO 01/17/25 08:30 01/20/25 05:18 100 MG Acetaminophen 650 mg Q6HP PRN PO 01/17/25 08:30 01/19/25 00:01 650 MG Diagnostic Test (Pha) 1 strip ACHS 01/17/25 11:30 01/20/25 11:30 1 STRIP Insulin Human Regular HS SC 01/17/25 22:00 01/19/25 22:01 3 UNITS Insulin Human Regular AC SC 01/17/25 11:30 01/19/25 13:36 2 UNITS Dextrose 50 ml UD PRN IV 01/17/25 08:45 Ceftriaxone Sodium 50 ml @ 100 mls/hr DAILY@09 IV 01/18/25 09:00 01/20/25 09:05 100 MLS/HR Doxycycline Hyclate 100 ml @ 100 mls/hr BID IV 01/17/25 22:00 01/20/25 09:11 100 MLS/HR Ipratropium [place] 0.5 mg Q4HPRN PRN NEB 01/17/25 16:15 Albuterol 2.5 mg Q4HPRN PRN NEB 01/17/25 16:15 Apixaban 2.5 mg BID PO 01/17/25 22:00 01/20/25 09:16 2.5 MG Atorvastatin Calcium 20 mg HS PO 01/17/25 22:00 01/19/25 21:58 20 MG Metoprolol Succinate 50 mg DAILY PO 01/18/25 10:00 01/20/25 09:12 50 MG Aspirin 81 mg DAILY PO 01/18/25 10:00 01/20/25 09:08 81 MG Nifedipine 60 mg DAILY PO 01/18/25 10:00 01/20/25 09:07 60 MG Vancomycin HCl 0 ml @ 0 mls/hr UD IV 01/18/25 09:30 Epoetin Tacho-epbx 4,000 unit TUTA [place] 01/18/25 12:00 01/20/25 09:12 4,000 UNIT Examination: GENERAL:Normal, CVS:Normal laboratory and microbiology Laboratory Tests 01/20/25 09:41 01/20/25 05:59 Test 01/20/25 09:41 Range/Units Serum Glucose 119 H 74-106 mg/dL Microbiology Date/Time Source Procedure Growth Status 01/17/25 07:55 Blood Blood Culture - Preliminary Resulted Problem List/Assessment/Plan Problem List/Assessment/Plan 89-year-old male with past medical history of end-stage renal disease on hemodialysis presents to the hospital complaining of weakness. Was found to have bacteremia. End-stage renal disease Sepsis secondary to Gram-positive bacteremia Anemia due to chronic kidney disease Patient is started on vancomycin, daily measure trough levels . today level 19 rec repeat BCX today negative negative cx prior to DC obtain TTE r/o endocarditis Hemodialysis tomorrow Epogen 3 times a week Renal diet Avoid hypotension Plan discussed with: Patient My Orders My Orders Orders - TETE ROBERTS MD Procedure Category Date Status Time Blood Culture JUAN 01/20/25 Transmitted 13:57 Total Time (mins): 26 TETE ROBERTS MD Jan 20, 2025 14:00
[2025-01-21] VITALS (9 sets, daily range): BP systolic 93–121; BP diastolic 49–66; PULSE 61–71; RESP 16–20; TEMP 97–99.6; O2SAT 95–100
[2025-01-21 07:27] LABS: Hematocrit 35.1 % (41.0-53.0); Hemoglobin 11.6 g/dL (13.5-17.5); Mean Corpuscular Hemoglobin 30.4 pg (28.0-32.0); Mean Corpuscular Volume 92.4 fL (80.0-100.0)
[2025-01-21 07:36] LABS: Anion Gap 12 (5-15); BUN/Creatinine Ratio 5.8 (10.0-20.0); Carbon Dioxide 26 mmol/L (20-31); Magnesium 1.8 mg/dL (1.6-2.6); Potassium 4.4 mmol/L (3.5-5.1); Total Protein 6.3 g/dL (5.7-8.2)
[2025-01-21 07:37] LABS: Albumin 3.6 g/dL (3.2-4.8); Bilirubin, Total 0.4 mg/dL (0.2-1.0)
[2025-01-21 07:46] LABS: Alanine Aminotransferase < 9 U/L (7-40); Alkaline Phosphatase 170 U/L (46-116); Blood Urea Nitrogen 43 mg/dL (9-23); Calcium 8.0 mg/dL (8.7-10.4); Chloride 97 mmol/L (98-107); Glucose 73 mg/dL (74-106); Sodium 135 mmol/L (136-145)
[2025-01-21 07:57] LABS: Total Cells Counted 100.0 (100)
--- NOTE | 2025-01-21 09:53 | DVHPN2 ---
Subjective No new complaints Changes from previous H/P or p: Changes Eyes: No Pain, No Vision change, No Conjunctivae inflammation, No Eyelid inflammation, No Other, No Redness ENT: No Ear pain, No Ear discharge, No Nose pain, No Nose discharge, No Nose congestion, No Mouth pain, No Mouth swelling, No Throat pain, No Throat swelling, No Other Cardiovascular: No Chest Pain, No Palpitations, No Orthopnea, No Paroxysmal Noc. Dyspnea, No Edema, No Lt Headedness, No Other Respiratory: No Cough, No Dry, No Shortness of breath, No SOB with excertion, No Wheezing, No Hemoptysis, No Pleuritic Pain, No Sputum, No Other Gastrointestinal: No Nausea, No Vomiting, No Abdominal Pain, No Diarrhea, No Constipation, No Melena, No Hematochezia, No Other Genitourinary: No Dysuria, No Frequency, No Incontinence, No Hematuria, No Retention, No Other Musculoskeletal: No other, No neck pain, No shoulder pain, No arm pain, No back pain, No hand pain, No leg pain, No foot pain Skin: No Rash, No Lesions, No Jaundice, No Bruising, No Other Objective Vitals Vital Signs Date Time Temp Pulse Resp B/P (MAP) Pulse Ox O2 Delivery O2 Flow Rate FiO2 01/21/25 08:53 97.9 61 18 101/58 (72) 99 97.9 01/20/25 22:40 2.0 01/20/25 20:00 Nasal Cannula* 28 Intake/Output Intake and Output 01/21/25 07:00 Intake Total 1020 ml Balance 1020 ml Intake Oral 770 ml IV Total 250 ml # Bowel Movements 1 General Appearance: Alert, Oriented X3, Cooperative Lungs: Clear to auscultation, Normal air movement Cardiovascular: Regular rate, Normal S1, Normal S2 Abdomen: Normal bowel sounds, Soft, No tenderness Extremities: No edema Medications Current Medications Medications Dose Ordered Sig/Dwight Route Start Time Stop Time Status Last Admin Dose Admin Sodium Chloride 10 ml Q8HR IV 01/17/25 14:00 01/21/25 06:06 10 ML Acetaminophen/ Hydrocodone Bitart 1 tab Q4HP PRN PO 01/17/25 08:30 01/21/25 04:06 1 TAB Ondansetron HCl 4 mg Q4HP PRN IV 01/17/25 08:30 Docusate Sodium 100 mg BIDPRN PRN PO 01/17/25 08:30 01/21/25 06:06 100 MG Acetaminophen 650 mg Q6HP PRN PO 01/17/25 08:30 01/19/25 00:01 650 MG Diagnostic Test (Pha) 1 strip ACHS 01/17/25 11:30 01/21/25 06:06 1 STRIP Insulin Human Regular HS SC 01/17/25 22:00 01/19/25 22:01 3 UNITS Insulin Human Regular AC SC 01/17/25 11:30 01/20/25 16:45 2 UNITS Dextrose 50 ml UD PRN IV 01/17/25 08:45 Ceftriaxone Sodium 50 ml @ 100 mls/hr DAILY@09 IV 01/18/25 09:00 01/20/25 09:05 100 MLS/HR Doxycycline Hyclate 100 ml @ 100 mls/hr BID IV 01/17/25 22:00 01/20/25 21:58 100 MLS/HR Ipratropium [place] 0.5 mg Q4HPRN PRN NEB 01/17/25 16:15 Albuterol 2.5 mg Q4HPRN PRN NEB 01/17/25 16:15 Apixaban 2.5 mg BID PO 01/17/25 22:00 01/20/25 21:55 2.5 MG Atorvastatin Calcium 20 mg HS PO 01/17/25 22:00 01/20/25 21:55 20 MG Metoprolol Succinate 50 mg DAILY PO 01/18/25 10:00 01/20/25 09:12 50 MG Aspirin 81 mg DAILY PO 01/18/25 10:00 01/20/25 09:08 81 MG Nifedipine 60 mg DAILY PO 01/18/25 10:00 01/20/25 09:07 60 MG Vancomycin HCl 0 ml @ 0 mls/hr UD IV 01/18/25 09:30 Epoetin Tacho-epbx 4,000 unit TUTHSA [place] 01/18/25 12:00 01/20/25 09:12 4,000 UNIT Laboratory Results Laboratory Tests 01/21/25 06:15 Chemistry Test 01/21/25 06:15 Albumin 3.6 g/dL (3.2-4.8) Calcium Level 8.0 mg/dL (8.7-10.4) L Magnesium Level 1.8 mg/dL (1.6-2.6) Total Protein 6.3 g/dL (5.7-8.2) LFT Test 01/21/25 06:15 Alanine Aminotransferase (ALT) < 9 U/L (7-40) Alkaline Phosphatase 170 U/L (46-116) H Aspartate Amino Transferase (AST) 27 U/L (13-40) Total Bilirubin 0.4 mg/dL (0.2-1.0) Microbiology Microbiology Date/Time Source Procedure Growth Status 01/17/25 07:55 Blood Blood Culture - Final Staphylococcus epidermidis Complete Assessment/Plan Assessment/Plan Acute metabolic encephalopathy Bilateral pneumonia End-stage renal disease on hemodialysis Hypertension Atrial fibrillation Old CVA Type 2 diabetes Chronic anemia of chronic kidney disease Sepsis Thrombocytopenia due to sepsis Plan IV antibiotics Rocephin and doxycycline Nephrology consult for dialysis Watch closely Physical therapy evaluation Discussed with the at the bedside Full code Advance directives discussed for 18 minutes 01/18/2025: Bacteremia: Add vancomycin Pneumonia: Continue doxycycline and Rocephin End-stage renal disease: Dialysis today Labs are not done today yet Generalized weakness: Physical therapy recommended SNF but the patient does not want to go to a SNF, he says he can walk We will do another PT evaluation 01/19/2025: Continue vancomycin Continue doxycycline and Rocephin Hemodialysis per nephrology Blood culture is still showing Gram-positive cocci in clusters and pairs Sepsis: Thrombocytopenia: Improving 01/20/2025: Continue vancomycin and IV antibiotics for the bacteremia Bacteremia: Culture is still pending Hemodialysis per nephrology Continue physical therapy Thrombocytopenia: Improved Discharge planning for tomorrow once the blood culture is finalized 01/21/2025: Blood culture came back 1 bottle of staph epi Repeat blood culture was done last night, pending Echocardiogram not done yet Sepsis: Improved Thrombocytopenia: Improving End-stage renal disease: Hemodialysis today Plan discussed with: Patient, Spouse, Other Date of Service: Jan 21, 2025 Billing Provider: IONA CARBAJAL MD Common Visit Codes: [id number] INP/OBS CARE(HIGH) IONA CARBAJAL MD Jan 21, 2025 09:53
--- NOTE | 2025-01-21 10:03 | DVHPN2 ---
Progress Note Date Seen: Jan 21, 2025 Medical Necessity Reason Pt with a Central, PICC or Fol: No Subjective Patient reports: Feels better (wants to go home) Objective vital signs Vital Sign Date Time Temp Pulse Resp B/P (MAP) Pulse Ox O2 Delivery O2 Flow Rate FiO2 01/21/25 08:53 97.9 61 18 101/58 (72) 99 97.9 01/20/25 22:40 2.0 01/20/25 20:00 Nasal Cannula* 28 Total Intake and Output 01/20/25 01/20/25 01/21/25 15:00 23:00 07:00 Intake Total 50 ml 450 ml 520 ml Balance 50 ml 450 ml 520 ml medications Current Medications Medications Dose Ordered Sig/Dwight Route Start Time Stop Time Status Last Admin Dose Admin Sodium Chloride 10 ml Q8HR IV 01/17/25 14:00 01/21/25 06:06 10 ML Acetaminophen/ Hydrocodone Bitart 1 tab Q4HP PRN PO 01/17/25 08:30 01/21/25 04:06 1 TAB Ondansetron HCl 4 mg Q4HP PRN IV 01/17/25 08:30 Docusate Sodium 100 mg BIDPRN PRN PO 01/17/25 08:30 01/21/25 06:06 100 MG Acetaminophen 650 mg Q6HP PRN PO 01/17/25 08:30 01/19/25 00:01 650 MG Diagnostic Test (Pha) 1 strip ACHS 01/17/25 11:30 01/21/25 06:06 1 STRIP Insulin Human Regular HS SC 01/17/25 22:00 01/19/25 22:01 3 UNITS Insulin Human Regular AC SC 01/17/25 11:30 01/20/25 16:45 2 UNITS Dextrose 50 ml UD PRN IV 01/17/25 08:45 Ceftriaxone Sodium 50 ml @ 100 mls/hr DAILY@09 IV 01/18/25 09:00 01/20/25 09:05 100 MLS/HR Doxycycline Hyclate 100 ml @ 100 mls/hr BID IV 01/17/25 22:00 01/20/25 21:58 100 MLS/HR Ipratropium [place] 0.5 mg Q4HPRN PRN NEB 01/17/25 16:15 Albuterol 2.5 mg Q4HPRN PRN NEB 01/17/25 16:15 Apixaban 2.5 mg BID PO 01/17/25 22:00 01/20/25 21:55 2.5 MG Atorvastatin Calcium 20 mg HS PO 01/17/25 22:00 01/20/25 21:55 20 MG Metoprolol Succinate 50 mg DAILY PO 01/18/25 10:00 01/20/25 09:12 50 MG Aspirin 81 mg DAILY PO 01/18/25 10:00 01/20/25 09:08 81 MG Nifedipine 60 mg DAILY PO 01/18/25 10:00 01/20/25 09:07 60 MG Vancomycin HCl 0 ml @ 0 mls/hr UD IV 01/18/25 09:30 Epoetin Tacho-epbx 4,000 unit TUTA PR 01/18/25 12:00 01/20/25 09:12 4,000 UNIT Examination: GENERAL:Normal laboratory and microbiology Laboratory Tests 01/21/25 06:15 Test 01/21/25 06:15 Range/Units Serum Glucose 73 L 74-106 mg/dL Microbiology Date/Time Source Procedure Growth Status 01/17/25 07:55 Blood Blood Culture - Final Staphylococcus epidermidis Complete Problem List/Assessment/Plan Problem List/Assessment/Plan 89-year-old male with past medical history of end-stage renal disease on hemodialysis presents to the hospital complaining of weakness. Was found to have bacteremia. End-stage renal disease Sepsis secondary to Gram-positive bacteremia , staph epi Anemia due to chronic kidney disease Patient is started on vancomycin, daily measure trough levels . today level 12.9 . HD today rec recheck post treatment and dose . next HD isnt until friday awaiting second BCx to ensure prelim is neg obtain TTE r/o endocarditis Hemodialysis today Epogen 3 times a week Renal diet Avoid hypotension when stable for Dc will make arrangement for 2 weeks for vancomycin Plan discussed with: Patient My Orders My Orders Orders - TETE ROBERTS MD Procedure Category Date Status Time Blood Culture JUAN 01/20/25 In Process 13:57 Echo 2d Mode Cardiac US 01/21/25 Logged DOP 13:58 Dietary Evaluation Review Comments: offer soymild with meals encourage and monitor PO intakes Nepro BID PO supplements Expected Outcomes/Goals: Recover from bacteremia, gradual wt gain Total Time (mins): 33 TETE ROBERTS MD Jan 21, 2025 10:03
[2025-01-21] MEDS: SODIUM CHL 0.9% 1000 ML BAG XX ONE (11:45)
[2025-01-21] MEDS: ALBUMIN 25% 100 ML IV ONE (12:32)
[2025-01-21] MEDS: ALBUMIN 25% 100 ML IV SCH (13:14)
--- NOTE | 2025-01-21 15:48 | DVHSR ---
APPROVED REPORT EXAM: Two-dimensional and M-mode echocardiogram with Doppler and color Doppler. Blood Pressure: 115/66 mmHg INDICATION R/O Endocarditis RISK FACTORS Height: 5'6", Weight: 124 DIMENSIONS LVDd3.9 (3.8-5.7cm)LA (2D)4.1 (1.9-4.0cm)Aortic Root3.2 (2.0-3.7cm) LVDs2.5 (2.5-4.0cm)LA (MM) (1.9-4.0cm)Aortic Cusp Exc1.2 (1.5-2.0cm) EF (%) 66.0 (55-70%)Rt. Atrium5.8 (1.9-4.0cm)Asc. Aorta cm IVSd0.8 (0.7-1.1cm)RV (D)5.0 (1.8-2.4cm) PWd1.1 (0.7-1.1cm) Mitral Valve MitralMitral Stenosis E/A ratio0.02D MVAcm2 Aortic Valve Aortic ValveAortic Stenosis V10.84m/Seema Mean GR.3mmHg V21.10m/Seema Peak GR.5mmHg LVOT Diameter2.0 (1.8-2.4cm)Doppler AVA2.40cm2 2D AVA1.83cm2 Pulmonic Valve V20.78m/s Tricuspid Valve TR Velocity3.71m/s [id number] Conclusion lvef 50% abnormal interventricular septal motion RV marked enlarged severe R heart failure no vegetation on MV or AV or TV moderate to sevre tricuspid regurgitation noted
[2025-01-21] MEDS ORDERED: VANCOMYCIN 500MG/100ML D5W 100 ML IV ONE (17:30)
[2025-01-21] MEDS ORDERED: VANCOMYCIN 500mg/100mL 100 ML IV ONE (17:45)
[2025-01-21] MEDS: VANCOMYCIN 500mg/100mL 100 ML IV ONE (17:56)
[2025-01-22] VITALS (8 sets, daily range): BP systolic 104–137; BP diastolic 53–69; PULSE 69–85; RESP 16–20; TEMP 97.6–98.9; O2SAT 97–100
[2025-01-22 16:05] LABS: Hematocrit 34.6 % (41.0-53.0); Hemoglobin 11.4 g/dL (13.5-17.5); Mean Corpuscular Hemoglobin 30.4 pg (28.0-32.0); Mean Corpuscular Volume 91.9 fL (80.0-100.0)
[2025-01-22 16:13] LABS: Potassium 5.1 mmol/L (3.5-5.1); Sodium 137 mmol/L (136-145)
[2025-01-22 16:14] LABS: Anion Gap 14 (5-15); Carbon Dioxide 27 mmol/L (20-31)
[2025-01-22 16:16] LABS: Calcium 8.5 mg/dL (8.7-10.4); Chloride 96 mmol/L (98-107)
[2025-01-22 16:19] LABS: BUN/Creatinine Ratio 8.0 (10.0-20.0)
[2025-01-22 16:20] LABS: Magnesium 1.6 mg/dL (1.6-2.6)
[2025-01-22 16:21] LABS: Glucose 131 mg/dL (74-106)
[2025-01-22 16:22] LABS: Blood Urea Nitrogen 53 mg/dL (9-23)
--- NOTE | 2025-01-22 16:56 | DVHPN2 ---
Progress Note Date Seen: Jan 22, 2025 Medical Necessity Reason Pt with a Central, PICC or Fol: No Subjective Patient reports: Feels better Changes from previous H/P or p: No Changes Objective vital signs Vital Sign Date Time Temp Pulse Resp B/P (MAP) Pulse Ox O2 Delivery O2 Flow Rate FiO2 01/22/25 13:00 98.9 69 18 137/69 (91) 97 98.9 01/22/25 10:00 Nasal Cannula 2.0 01/22/25 10:00 28 Total Intake and Output 01/21/25 01/21/25 01/22/25 15:00 23:00 07:00 Intake Total 200 ml 500 ml 340 ml Balance 200 ml 500 ml 340 ml medications Current Medications Medications Dose Ordered Sig/Dwight Route Start Time Stop Time Status Last Admin Dose Admin Sodium Chloride 10 ml Q8HR IV 01/17/25 14:00 01/22/25 14:31 10 ML Acetaminophen/ Hydrocodone Bitart 1 tab Q4HP PRN PO 01/17/25 08:30 01/21/25 04:06 1 TAB Ondansetron HCl 4 mg Q4HP PRN IV 01/17/25 08:30 Docusate Sodium 100 mg BIDPRN PRN PO 01/17/25 08:30 01/22/25 09:27 100 MG Acetaminophen 650 mg Q6HP PRN PO 01/17/25 08:30 01/22/25 09:01 650 MG Diagnostic Test (Pha) 1 strip ACHS 01/17/25 11:30 01/22/25 12:25 1 STRIP Insulin Human Regular HS SC 01/17/25 22:00 01/19/25 22:01 3 UNITS Insulin Human Regular AC SC 01/17/25 11:30 01/21/25 16:43 2 UNITS Dextrose 50 ml UD PRN IV 01/17/25 08:45 Ceftriaxone Sodium 50 ml @ 100 mls/hr DAILY@09 IV 01/18/25 09:00 01/22/25 09:00 100 MLS/HR Doxycycline Hyclate 100 ml @ 100 mls/hr BID IV 01/17/25 22:00 01/22/25 09:00 100 MLS/HR Ipratropium [place] 0.5 mg Q4HPRN PRN NEB 01/17/25 16:15 Albuterol 2.5 mg Q4HPRN PRN NEB 01/17/25 16:15 Apixaban 2.5 mg BID PO 01/17/25 22:00 01/22/25 09:03 2.5 MG Atorvastatin Calcium 20 mg HS PO 01/17/25 22:00 01/21/25 21:30 20 MG Metoprolol Succinate 50 mg DAILY PO 01/18/25 10:00 01/20/25 09:12 50 MG Aspirin 81 mg DAILY PO 01/18/25 10:00 01/22/25 09:03 81 MG Nifedipine 60 mg DAILY PO 01/18/25 10:00 01/22/25 09:02 60 MG Vancomycin HCl 0 ml @ 0 mls/hr UD IV 01/18/25 09:30 Epoetin Tacho-epbx 4,000 unit TUTA [place] 01/18/25 12:00 01/22/25 09:01 4,000 UNIT Examination: GENERAL:Normal, CVS:Normal, SKIN:Normal laboratory and microbiology Laboratory Tests 01/22/25 15:30 Test 01/22/25 15:30 Range/Units Serum Glucose 131 H 74-106 mg/dL Microbiology Date/Time Source Procedure Growth Status 01/20/25 21:16 Blood Blood Culture - Preliminary NO GROWTH AFTER 24 HOURS OF INCUBATION. Resulted Problem List/Assessment/Plan Problem List/Assessment/Plan 89-year-old male with past medical history of end-stage renal disease on hemodialysis presents to the hospital complaining of weakness. Was found to have bacteremia. End-stage renal disease Sepsis secondary to Gram-positive bacteremia , staph epi Anemia due to chronic kidney disease second BCX NGTD, will continue outpatient vancomycin on HD todays for 2 weeks TTE negative Hemodialysis outpatient friday Epogen 3 times a week Renal diet Avoid hypotension Plan discussed with: Patient Dietary Evaluation Review Comments: offer soymild with meals encourage and monitor PO intakes Nepro BID PO supplements Expected Outcomes/Goals: Recover from bacteremia, gradual wt gain TETE ROBERTS MD Jan 22, 2025 16:56
[2025-01-22 17:01] LABS: Total Cells Counted 100.0 (100)
--- NOTE | 2025-01-22 18:31 | DVHPN2 ---
Subjective Feels okay. No change Reviewed: Care Plan, H&P, Labs, Medications, Previous Orders, Radiology, Other (Telesales Agent) Changes from previous H/P or p: No Changes Objective Vitals Vital Signs Date Time Temp Pulse Resp B/P (MAP) Pulse Ox O2 Delivery O2 Flow Rate FiO2 01/22/25 17:03 97.6 85 17 104/58 (73) 100 97.6 01/22/25 10:00 Nasal Cannula 2.0 01/22/25 10:00 28 Intake/Output Intake and Output 01/22/25 06:59 Intake Total 1040 ml Balance 1040 ml Intake Oral 840 ml IV Total 200 ml # Bowel Movements 1 General Appearance: Alert, Oriented X3, Cooperative HEENT: Atraumatic Lungs: Other (Few crackles bibasilar areas) Cardiovascular: Regular rate, Normal S1, Normal S2 Abdomen: Normal bowel sounds, Soft, No tenderness Extremities: No edema Medications Current Medications Medications Dose Ordered Sig/Dwight Route Start Time Stop Time Status Last Admin Dose Admin Sodium Chloride 10 ml Q8HR IV 01/17/25 14:00 01/22/25 14:31 10 ML Acetaminophen/ Hydrocodone Bitart 1 tab Q4HP PRN PO 01/17/25 08:30 01/21/25 04:06 1 TAB Ondansetron HCl 4 mg Q4HP PRN IV 01/17/25 08:30 Docusate Sodium 100 mg BIDPRN PRN PO 01/17/25 08:30 01/22/25 09:27 100 MG Acetaminophen 650 mg Q6HP PRN PO 01/17/25 08:30 01/22/25 09:01 650 MG Diagnostic Test (Pha) 1 strip ACHS 01/17/25 11:30 01/22/25 18:16 1 STRIP Insulin Human Regular HS SC 01/17/25 22:00 01/19/25 22:01 3 UNITS Insulin Human Regular AC SC 01/17/25 11:30 01/21/25 16:43 2 UNITS Dextrose 50 ml UD PRN IV 01/17/25 08:45 Ceftriaxone Sodium 50 ml @ 100 mls/hr DAILY@09 IV 01/18/25 09:00 01/22/25 09:00 100 MLS/HR Doxycycline Hyclate 100 ml @ 100 mls/hr BID IV 01/17/25 22:00 01/22/25 09:00 100 MLS/HR Ipratropium [place] 0.5 mg Q4HPRN PRN NEB 01/17/25 16:15 Albuterol 2.5 mg Q4HPRN PRN NEB 01/17/25 16:15 Apixaban 2.5 mg BID PO 01/17/25 22:00 01/22/25 09:03 2.5 MG Atorvastatin Calcium 20 mg HS PO 01/17/25 22:00 01/21/25 21:30 20 MG Metoprolol Succinate 50 mg DAILY PO 01/18/25 10:00 01/20/25 09:12 50 MG Aspirin 81 mg DAILY PO 01/18/25 10:00 01/22/25 09:03 81 MG Nifedipine 60 mg DAILY PO 01/18/25 10:00 01/22/25 09:02 60 MG Vancomycin HCl 0 ml @ 0 mls/hr UD IV 01/18/25 09:30 Epoetin Tacho-epbx 4,000 unit TUTHSA [place] 01/18/25 12:00 01/22/25 09:01 4,000 UNIT Laboratory Results Laboratory Tests 01/22/25 15:30 Chemistry Test 01/22/25 15:30 Calcium Level 8.5 mg/dL (8.7-10.4) L Magnesium Level 1.6 mg/dL (1.6-2.6) Microbiology Microbiology Date/Time Source Procedure Growth Status 01/20/25 21:16 Blood Blood Culture - Preliminary NO GROWTH AFTER 24 HOURS OF INCUBATION. Resulted Assessment/Plan Assessment/Plan Bilateral pneumonia/pneumonitis Encephalopathy/metabolic Severe right ventricular failure [id number] tricuspid regurgitation Bacteremia with Staph epi End-stage renal disease on hemodialysis Hypertension Diabetes Anemia of chronic disease Thrombocytopenia AFib History of old CVA Hyperglycemia Plan: Continue current plan of care. Urinalysis. A1c. Possible home tomorrow Plan discussed with: Patient, Spouse My Orders Orders - SURYA TORRES MD Procedure Category Date Status Time Urinalysis LAB 01/22/25 Logged 12:29 Date of Service: Jan 22, 2025 Billing Provider: SURYA TORRES MD Common Visit Codes: [id number] INP/OBS CARE(HIGH) SURYA TORRES MD Jan 22, 2025 18:31
--- NOTE | 2025-01-22 19:07 | DVH ---
CHEST RADIOGRAPH Indication: PNA Technique: Single frontal view of the chest was obtained Comparison: XY CHEST PORTABLE on DOS: 01/17/25 FINDINGS: Lines and Tubes: None Lungs: No focal consolidation. Pleura: No effusion. No pneumothorax. Cardiomediastinal contours: Unremarkable Bones: No acute osseous abnormality. IMPRESSION: 1. Again mildly prominent and coarse reticular opacities prominent in the lung bases.
[2025-01-23 01:00] VITALS: BP 107/50; PULSE 72; RESP 19; TEMP 98.1; O2SAT 100
[2025-01-23 05:00] VITALS: BP 106/59; PULSE 72; RESP 18; TEMP 98.1; O2SAT 100
--- NOTE | 2025-01-23 08:23 | MEDREC ---
[facility] Intervention Section I [facility] Intervention: Review courses of therapy (PLEASE CONSIDER D/C VANCOMYCIN BLOOD CULTURE WITH STAPHYLOCOCCUS EPIDERMIDIS X 1 COULD BE A POTENTIAL CONTAMINATION NEW PRELIMINARY BLOOD CULTURE WITH NO GROWTH ) REBECCA HOOKS PHARMACIST Jan 23, 2025 08:23
[2025-01-23 09:00] VITALS: BP 104/59; PULSE 78; RESP 16; TEMP 97.9; O2SAT 100
[2025-01-23 13:00] VITALS: BP 124/67; PULSE 82; RESP 16; TEMP 98; O2SAT 100
--- NOTE | 2025-01-23 14:11 | DVHPN2 ---
Progress Note Date Seen: Jan 23, 2025 Medical Necessity Reason Pt with a Central, PICC or Fol: No Subjective Patient reports: Feels better Changes from previous H/P or p: No Changes Objective vital signs Vital Sign Date Time Temp Pulse Resp B/P (MAP) Pulse Ox O2 Delivery O2 Flow Rate FiO2 01/23/25 13:00 98.0 82 16 124/67 (86) 100 98.0 01/23/25 10:00 Nasal Cannula* 2 28 Total Intake and Output 01/22/25 01/22/25 01/23/25 15:00 23:00 07:00 Intake Total 150 ml 990 ml 200 ml Balance 150 ml 990 ml 200 ml medications Current Medications Medications Dose Ordered Sig/Dwight Route Start Time Stop Time Status Last Admin Dose Admin Sodium Chloride 10 ml Q8HR IV 01/17/25 14:00 01/23/25 05:55 10 ML Acetaminophen/ Hydrocodone Bitart 1 tab Q4HP PRN PO 01/17/25 08:30 01/21/25 04:06 1 TAB Ondansetron HCl 4 mg Q4HP PRN IV 01/17/25 08:30 Docusate Sodium 100 mg BIDPRN PRN PO 01/17/25 08:30 01/23/25 09:19 100 MG Acetaminophen 650 mg Q6HP PRN PO 01/17/25 08:30 01/23/25 09:31 650 MG Diagnostic Test (Pha) 1 strip ACHS 01/17/25 11:30 01/23/25 11:09 1 STRIP Insulin Human Regular HS SC 01/17/25 22:00 01/22/25 22:19 2 UNITS Insulin Human Regular AC SC 01/17/25 11:30 01/21/25 16:43 2 UNITS Dextrose 50 ml UD PRN IV 01/17/25 08:45 Ceftriaxone Sodium 50 ml @ 100 mls/hr DAILY@09 IV 01/18/25 09:00 01/23/25 09:18 100 MLS/HR Doxycycline Hyclate 100 ml @ 100 mls/hr BID IV 01/17/25 22:00 01/23/25 09:19 100 MLS/HR Ipratropium [place] 0.5 mg Q4HPRN PRN NEB 01/17/25 16:15 Cancel Albuterol 2.5 mg Q4HPRN PRN NEB 01/17/25 16:15 Cancel Apixaban 2.5 mg BID PO 01/17/25 22:00 01/23/25 09:20 2.5 MG Atorvastatin Calcium 20 mg HS PO 01/17/25 22:00 01/22/25 22:01 20 MG Metoprolol Succinate 50 mg DAILY PO 01/18/25 10:00 01/20/25 09:12 50 MG Aspirin 81 mg DAILY PO 01/18/25 10:00 01/23/25 09:19 81 MG Nifedipine 60 mg DAILY PO 01/18/25 10:00 01/22/25 09:02 60 MG Vancomycin HCl 0 ml @ 0 mls/hr UD IV 01/18/25 09:30 Epoetin Tacho-epbx 4,000 unit TUTHSA SC 01/18/25 12:00 01/22/25 09:01 4,000 UNIT Examination: GENERAL:Normal, CVS:Normal laboratory and microbiology Laboratory Tests 01/23/25 05:58 01/22/25 15:30 Test 01/22/25 15:30 Range/Units Serum Glucose 131 H 74-106 mg/dL Microbiology Date/Time Source Procedure Growth Status 01/20/25 21:16 Blood Blood Culture - Preliminary NO GROWTH AFTER 48 HOURS OF INCUBATION. Resulted Problem List/Assessment/Plan Problem List/Assessment/Plan 89-year-old male with past medical history of end-stage renal disease on hemodialysis presents to the hospital complaining of weakness. Was found to have bacteremia. End-stage renal disease Sepsis secondary to Gram-positive bacteremia , staph epi Anemia due to chronic kidney disease second BCX NGTD, will continue outpatient vancomycin on HD days for 2 weeks TTE negative Hemodialysis outpatient friday, rec DC patient Epogen 3 times a week Renal diet Avoid hypotension Plan discussed with: Patient Dietary Evaluation Review Comments: offer soymild with meals encourage and monitor PO intakes Nepro BID PO supplements Expected Outcomes/Goals: Recover from bacteremia, gradual wt gain Total Time (mins): 25 TETE ROBERTS MD Jan 23, 2025 14:11
[2025-01-23 17:00] VITALS: BP 111/58; PULSE 60; RESP 16; TEMP 97.7; O2SAT 99
--- NOTE | 2025-01-23 17:06 | DVHPN2 ---
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) Changes from previous H/P or p: No Changes Objective Vitals Vital Signs Date Time Temp Pulse Resp B/P (MAP) Pulse Ox O2 Delivery O2 Flow Rate FiO2 01/23/25 13:00 98.0 82 16 124/67 (86) 100 98.0 01/23/25 10:00 Nasal Cannula* 2 28 Intake/Output Intake and Output 01/23/25 06:59 Intake Total 1340 ml Balance 1340 ml Intake Oral 1090 ml IV Total 250 ml # Bowel Movements 2 General Appearance: Alert, Oriented X3, Cooperative HEENT: Atraumatic Lungs: Other (Few crackles bibasilar areas) Cardiovascular: Regular rate, Normal S1, Normal S2 Abdomen: Normal bowel sounds, Soft, No tenderness Extremities: No edema Medications Current Medications Medications Dose Ordered Sig/Dwight Route Start Time Stop Time Status Last Admin Dose Admin Sodium Chloride 10 ml Q8HR IV 01/17/25 14:00 01/23/25 15:53 10 ML Acetaminophen/ Hydrocodone Bitart 1 tab Q4HP PRN PO 01/17/25 08:30 01/21/25 04:06 1 TAB Ondansetron HCl 4 mg Q4HP PRN IV 01/17/25 08:30 Docusate Sodium 100 mg BIDPRN PRN PO 01/17/25 08:30 01/23/25 09:19 100 MG Acetaminophen 650 mg Q6HP PRN PO 01/17/25 08:30 01/23/25 09:31 650 MG Diagnostic Test (Pha) 1 strip ACHS 01/17/25 11:30 01/23/25 11:09 1 STRIP Insulin Human Regular HS SC 01/17/25 22:00 01/22/25 22:19 2 UNITS Insulin Human Regular AC SC 01/17/25 11:30 01/21/25 16:43 2 UNITS Dextrose 50 ml UD PRN IV 01/17/25 08:45 Ceftriaxone Sodium 50 ml @ 100 mls/hr DAILY@09 IV 01/18/25 09:00 01/23/25 09:18 100 MLS/HR Doxycycline Hyclate 100 ml @ 100 mls/hr BID IV 01/17/25 22:00 01/23/25 09:19 100 MLS/HR Ipratropium [place] 0.5 mg Q4HPRN PRN NEB 01/17/25 16:15 Cancel Albuterol 2.5 mg Q4HPRN PRN NEB 01/17/25 16:15 Cancel Apixaban 2.5 mg BID PO 01/17/25 22:00 01/23/25 09:20 2.5 MG Atorvastatin Calcium 20 mg HS PO 01/17/25 22:00 01/22/25 22:01 20 MG Metoprolol Succinate 50 mg DAILY PO 01/18/25 10:00 01/20/25 09:12 50 MG Aspirin 81 mg DAILY PO 01/18/25 10:00 01/23/25 09:19 81 MG Nifedipine 60 mg DAILY PO 01/18/25 10:00 01/22/25 09:02 60 MG Vancomycin HCl 0 ml @ 0 mls/hr UD IV 01/18/25 09:30 Epoetin Tacho-epbx 4,000 unit TUTHSA SC 01/18/25 12:00 01/22/25 09:01 4,000 UNIT Laboratory Results Laboratory Tests 01/22/25 15:30 01/23/25 05:58 Microbiology Microbiology Date/Time Source Procedure Growth Status 01/20/25 21:16 Blood Blood Culture - Preliminary NO GROWTH AFTER 48 HOURS OF INCUBATION. Resulted Assessment/Plan Assessment/Plan Bilateral pneumonia/pneumonitis Encephalopathy/metabolic Severe right ventricular failure Ncgmidap-id-heetag tricuspid regurgitation Bacteremia with Staph epi End-stage renal disease on hemodialysis Hypertension Diabetes Anemia of chronic disease Thrombocytopenia AFib History of old CVA Hyperglycemia Left shoulder left arm and neck pain Plan: We will obtain x-ray of the left shoulder. Continue current plan of care. Possible home tomorrow Plan discussed with: Patient, Spouse My Orders Orders - SURYA TORRES MD Procedure Category Date Status Time Chest Portable XY 01/22/25 Resulted 18:31 Date of Service: Jan 23, 2025 Billing Provider: SURYA TORRES MD Common Visit Codes: [id number] INP/OBS CARE(HIGH) SURYA TORRES MD Jan 23, 2025 17:06
[2025-01-23] MEDS: VANCOMYCIN 500mg/100mL 100 ML IV ONE (17:38)
--- NOTE | 2025-01-23 17:55 | DVH ---
CLINICAL INDICATION: pain TECHNIQUE: 3 radiographic views of the left shoulder were obtained. Comparison: None FINDINGS/IMPRESSION: Bony structures are normal alignment There are no fractures or dislocations. No abnormal soft tissue calcifications.
[2025-01-23 21:00] VITALS: BP 101/57; PULSE 67; RESP 15; TEMP 97.5; O2SAT 98
[2025-01-24] VITALS (8 sets, daily range): BP systolic 103–151; BP diastolic 49–81; PULSE 60–85; RESP 14–17; TEMP 36.6; O2SAT 99–100
[2025-01-24] MEDS: ONDANSETRON HCL 4 MG/2 ML VIAL IV PRN (08:46)
--- NOTE | 2025-01-24 09:46 | DVHDS2 ---
Discharge Summary Date of Admission Jan 17, 2025 at 08:17 Date of Discharge: Jan 24, 2025 Labs/Diagnostic Data: Laboratory Results Test 01/24/25 06:16 01/23/25 20:03 01/23/25 05:58 01/22/25 15:30 POC Glucose 80 mg/dl (70-106) Erythrocyte Sedimentation Rate 12 mm/hr (0-20) Creatinine 7.47 mg/dL (0.700-1.30) Glomerular Filtration Rate Calc 6 mL/min (>90) Random Vancomycin Level 10.8 ug/mL (5-10) White Blood Count 7.3 10^3/uL (4.4-10.8) Red Blood Count 3.76 10^6/uL (4.5-5.90) Hemoglobin 11.4 g/dL (13.5-17.5) Hematocrit 34.6 % (41.0-53.0) Mean Corpuscular Volume 91.9 fL (80.0-100.0) Mean Corpuscular Hemoglobin 30.4 pg (28.0-32.0) Mean Corpuscular Hemoglobin Concent 33.1 g/dL (32.0-36.0) Red Cell Distribution Width 18.6 % (11.8-14.3) Platelet Count 146 10^3/uL (140-450) Mean Platelet Volume 10.1 fL (6.9-10.8) Neutrophils (%) (Auto) % (37.0-80.0) Lymphocytes (%) (Auto) % (10.0-50.0) Monocytes (%) (Auto) % (0.0-12.0) Basophils (%) (Auto) % (0.0-2.0) Neutrophils # (Auto) 10 ^3/uL (1.6-8.6) Lymphocytes # (Auto) 10 ^3/uL (0.4-5.4) Monocytes # (Auto) 10 ^3/uL (0-1.3) Differential Total Cells Counted 100.0 (100) Neutrophils % (Manual) 70 (37.0-80.0) Band Neutrophils % (Manual) 0 Lymphocytes % (Manual) 24 (10.0-50.0) Monocytes % (Manual) 2 (0-12) Eosinophils % (Manual) 4 (0-7) Basophils % (Manual) 0 (0.0-2.0) Metamyelocytes % (manual) 0 Myelocytes % (Manual) 0 Promyelocytes % (Manual) 0 Blast Cells % (Manual) 0 Reactive Lymphocytes 0 Platelet Estimate Adequate Large Platelets Few Levy Cells Few Schistocytes Few Sodium Level 137 mmol/L (136-145) Potassium Level 5.1 mmol/L (3.5-5.1) Chloride Level 96 mmol/L (98-107) Carbon Dioxide Level 27 mmol/L (20-31) Anion Gap 14 (5-15) Blood Urea Nitrogen 53 mg/dL (9-23) BUN/Creatinine Ratio 8.0 (10.0-20.0) Serum Glucose 131 mg/dL (74-106) Hemoglobin A1c 4.9 % A1C (<5.7) Calcium Level 8.5 mg/dL (8.7-10.4) Magnesium Level 1.6 mg/dL (1.6-2.6) Test 01/21/25 06:15 01/20/25 05:59 01/19/25 05:51 01/18/25 20:26 Total Bilirubin 0.4 mg/dL (0.2-1.0) Aspartate Amino Transferase (AST) 27 U/L (13-40) Alanine Aminotransferase (ALT) < 9 U/L (7-40) Alkaline Phosphatase 170 U/L (46-116) Total Protein 6.3 g/dL (5.7-8.2) Albumin 3.6 g/dL (3.2-4.8) Eosinophils (%) (Auto) 4.2 % (0.0-7.0) Eosinophils # (Auto) 0.3 10 ^3/uL (0-0.8) Basophils # (Auto) 0.1 10 ^3/uL (0-0.2) Nucleated Red Blood Cells 0.5 % Iron Level 58 ug/dL (65-175) Total Iron Binding Capacity 218 ug/dL (250-425) Percent Iron Saturation 26.6 % (20-55) Ferritin 60.0 ng/mL (22-322) Phosphorus Level 2.9 mg/dL (2.4-5.1) Parathyroid Hormone (Intact) 394.8 pg/mL (18.4-80.1) Test 01/18/25 11:15 01/17/25 11:21 01/17/25 02:51 Macrocytosis Marked Hepatitis A IgM Antibody Negative Hepatitis B Surface Antigen Negative (Negative) Hepatitis B Core IgM Antibody Negative (Negative) Hepatitis C Antibody Negative (Negative) Ammonia < 10 umol/L (11-32) Troponin I High Sensitivity 18 ng/L (</=54) B-Type Natriuretic Peptide 727.46 pg/mL (0-100) Lactic Acid Level 1.2 mmol/L (0.4-2.0) Plasma/Serum Blood Alcohol < 3.0 mg/dL (<10) Other Laboratory Tests 01/23/25 05:58 01/22/25 15:30 Brief Hx & Hospital Course: Final diagnoses: Acute metabolic encephalopathy Bilateral pneumonia End-stage renal disease on hemodialysis Hypertension Atrial fibrillation Old CVA Type 2 diabetes Chronic anemia of chronic kidney disease Sepsis Thrombocytopenia due to sepsis Severe right heart failure 89-year-old male who was admitted due confusion and weakness He had pneumonia on the x-ray His blood cultures were drawn and 1 bottle came to have staph epi He was given IV antibiotics and an echocardiogram was done showed no vegetations however it shows severe right heart failure Two more sets of blood cultures were done which were negative Nephrology that his dialysis Cardiology cleared the patient after the echo was done Physical therapy saw the patient ambulated Initially we recommended a SNF for rehab however the patient refused Now he is ambulating well and he will go home with home health instead Discharged home today after dialysis He finished 7 days of IV antibiotics, no need for more antibiotics Condition at Discharge: Stable Final Diagnosis/Problems List Acute metabolic encephalopathy Bilateral pneumonia End-stage renal disease on hemodialysis Hypertension Atrial fibrillation Old CVA Type 2 diabetes Chronic anemia of chronic kidney disease Sepsis Thrombocytopenia due to sepsis Severe right heart failure Discharge Disposition: Home with Health Services SNF Discharge Will this Physician continue t: No Discharge Instruct/Medications Scheduled Apixaban Base (Eliquis), 2.5 MG PO BID, (Reported) Aspirin (Aspirin), 81 MG PO DAILY, (Reported) Atorvastatin Calcium (Atorvastatin Calcium), 1 TAB PO HS, (Reported) Metoprolol Succinate (Metoprolol Succinate Er), 1 TAB PO DAILY, (Reported) Nifedipine (Nifedipine Er), 1 TAB PO DAILY, (Reported) Discharge Statement: "Patient was advised to return to the ER or call 911 if any headaches, dizziness, shortness of breath, chest pain, abdominal pain, bleeding, fevers, or worsening of medical condition. Patient was counseled about treatment plan, medications, possible side effects, patientverbalized understanding. All questions were answered to the best of my ability. This discharge took greater then 30 minutes in planning, reviewing documentation, counseling the patient, and discussing with other team members." ASSESSMENT ASSESSMENT Assessment Date of Service: Jan 24, 2025 Billing Provider: IONA CARBAJAL MD Common Visit Codes: [id number] DISCH DAY >30min IONA CARBAJAL MD Jan 24, 2025 09:46
--- NOTE | 2025-01-24 18:37 | DVHPN2 ---
Progress Note Date Seen: Jan 24, 2025 Medical Necessity Reason Pt with a Central, PICC or Fol: No Subjective Patient reports: Other Review of Systems: Deferred Objective vital signs Vital Sign Date Time Temp Pulse Resp B/P (MAP) Pulse Ox O2 Delivery O2 Flow Rate FiO2 01/24/25 16:46 97.7 60 16 151/79 (103) 99 97.7 01/24/25 10:00 Nasal Cannula 2.0 01/24/25 10:00 28 Total Intake and Output 01/23/25 01/23/25 01/24/25 15:00 23:00 07:00 Intake Total 150 ml 700 ml 200 ml Balance 150 ml 700 ml 200 ml medications Current Medications Medications Dose Ordered Sig/Dwight Route Start Time Stop Time Status Last Admin Dose Admin Sodium Chloride 10 ml Q8HR IV 01/17/25 14:00 01/24/25 14:36 10 ML Acetaminophen/ Hydrocodone Bitart 1 tab Q4HP PRN PO 01/17/25 08:30 01/21/25 04:06 1 TAB Ondansetron HCl 4 mg Q4HP PRN IV 01/17/25 08:30 01/24/25 16:45 4 MG Docusate Sodium 100 mg BIDPRN PRN PO 01/17/25 08:30 01/24/25 08:46 100 MG Acetaminophen 650 mg Q6HP PRN PO 01/17/25 08:30 01/24/25 08:46 650 MG Diagnostic Test (Pha) 1 strip ACHS 01/17/25 11:30 01/24/25 16:51 1 STRIP Insulin Human Regular HS SC 01/17/25 22:00 01/23/25 21:24 2 UNITS Insulin Human Regular AC SC 01/17/25 11:30 01/21/25 16:43 2 UNITS Dextrose 50 ml UD PRN IV 01/17/25 08:45 Ceftriaxone Sodium 50 ml @ 100 mls/hr DAILY@09 IV 01/18/25 09:00 01/24/25 08:45 100 MLS/HR Doxycycline Hyclate 100 ml @ 100 mls/hr BID IV 01/17/25 22:00 01/24/25 08:46 100 MLS/HR Ipratropium [place] 0.5 mg Q4HPRN PRN NEB 01/17/25 16:15 Cancel Albuterol 2.5 mg Q4HPRN PRN NEB 01/17/25 16:15 Cancel Apixaban 2.5 mg BID PO 01/17/25 22:00 01/24/25 08:46 2.5 MG Atorvastatin Calcium 20 mg HS PO 01/17/25 22:00 01/23/25 21:09 20 MG Metoprolol Succinate 50 mg DAILY PO 01/18/25 10:00 01/20/25 09:12 50 MG Aspirin 81 mg DAILY PO 01/18/25 10:00 01/24/25 08:46 81 MG Nifedipine 60 mg DAILY PO 01/18/25 10:00 01/22/25 09:02 60 MG Vancomycin HCl 0 ml @ 0 mls/hr UD IV 01/18/25 09:30 Epoetin Tacho-epbx 4,000 unit TUTHSA SC 01/18/25 12:00 01/22/25 09:01 4,000 UNIT Examination: GENERAL:Normal, MSK:Abnormal, SKIN:Abnormal laboratory and microbiology Laboratory Tests 01/23/25 05:58 01/22/25 15:30 Test 01/22/25 15:30 Range/Units Serum Glucose 131 H 74-106 mg/dL Microbiology Date/Time Source Procedure Growth Status 01/20/25 21:16 Blood Blood Culture - Preliminary NO GROWTH AFTER 72 HOURS OF INCUBATION. Resulted Problem List/Assessment/Plan Problem List/Assessment/Plan End-stage renal disease Sepsis secondary to Gram-positive bacteremia Anemia due to chronic kidney disease recs HD 01/25 if still here Plan discussed with: Patient, Other Dietary Evaluation Review Comments: offer soymild with meals encourage and monitor PO intakes Nepro BID PO supplements Expected Outcomes/Goals: Recover from bacteremia, gradual wt gain MANDEEP MENCHACA MD Jan 24, 2025 18:37
[2025-01-25 01:00] VITALS: BP 110/58; PULSE 74; RESP 16; TEMP 97.7; O2SAT 100
[2025-01-25 05:00] VITALS: BP 130/75; PULSE 100; RESP 18; TEMP 97.8; O2SAT 100
[2025-01-25 09:00] VITALS: BP 166/82; PULSE 101; RESP 16; TEMP 97.2
[2025-01-25] MEDS: LIDOCAINE 2% (LOCAL ANESTH.) PF 5ml SDV ONE (10:00)
[2025-01-25] MEDS: LIDOCAINE 1% HCL (LOCAL ANESTH.) INJ 20ML MDV ID ONE (10:00)
--- NOTE | 2025-01-25 10:14 | DVHPN2 ---
Subjective The patient just finished dialysis however after the dialysis was done he has started bleeding from the graft in his left arm profusely even though pressure was applied for a long time After about 50 minutes of pressure on the site the bleeding was continuous and perfused and therefore we called Dr. 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) Changes from previous H/P or p: Changes Objective Vitals Vital Signs Date Time Temp Pulse Resp B/P (MAP) Pulse Ox O2 Delivery O2 Flow Rate FiO2 01/25/25 05:00 97.8 100 18 130/75 (93) 100 97.8 01/24/25 20:00 Nasal Cannula* 2 28 Intake/Output Intake and Output 01/25/25 07:00 Intake Total 1215 ml Balance 1215 ml Intake Oral 965 ml IV Total 250 ml General Appearance: Alert, Oriented X3, Cooperative HEENT: Atraumatic Lungs: Other (Few crackles bibasilar areas) Cardiovascular: Regular rate, Normal S1, Normal S2 Abdomen: Normal bowel sounds, Soft, No tenderness Extremities: No edema Medications Current Medications Medications Dose Ordered Sig/Dwight Route Start Time Stop Time Status Last Admin Dose Admin Sodium Chloride 10 ml Q8HR IV 01/17/25 14:00 01/25/25 06:35 10 ML Acetaminophen/ Hydrocodone Bitart 1 tab Q4HP PRN PO 01/17/25 08:30 01/21/25 04:06 1 TAB Ondansetron HCl 4 mg Q4HP PRN IV 01/17/25 08:30 01/24/25 21:32 4 MG Docusate Sodium 100 mg BIDPRN PRN PO 01/17/25 08:30 01/24/25 21:43 100 MG Acetaminophen 650 mg Q6HP PRN PO 01/17/25 08:30 01/24/25 08:46 650 MG Diagnostic Test (Pha) 1 strip ACHS 01/17/25 11:30 01/25/25 06:35 1 STRIP Insulin Human Regular HS SC 01/17/25 22:00 01/23/25 21:24 2 UNITS Insulin Human Regular AC SC 01/17/25 11:30 01/21/25 16:43 2 UNITS Dextrose 50 ml UD PRN IV 01/17/25 08:45 Ceftriaxone Sodium 50 ml @ 100 mls/hr DAILY@09 IV 01/18/25 09:00 01/24/25 08:45 100 MLS/HR Doxycycline Hyclate 100 ml @ 100 mls/hr BID IV 01/17/25 22:00 01/24/25 21:33 100 MLS/HR Ipratropium [place] 0.5 mg Q4HPRN PRN NEB 01/17/25 16:15 Cancel Albuterol 2.5 mg Q4HPRN PRN NEB 01/17/25 16:15 Cancel Apixaban 2.5 mg BID PO 01/17/25 22:00 01/24/25 21:34 2.5 MG Atorvastatin Calcium 20 mg HS PO 01/17/25 22:00 01/24/25 21:34 20 MG Metoprolol Succinate 50 mg DAILY PO 01/18/25 10:00 01/20/25 09:12 50 MG Aspirin 81 mg DAILY PO 01/18/25 10:00 01/24/25 08:46 81 MG Nifedipine 60 mg DAILY PO 01/18/25 10:00 01/22/25 09:02 60 MG Vancomycin HCl 0 ml @ 0 mls/hr UD IV 01/18/25 09:30 Epoetin Tacho-epbx 4,000 unit TUTHSA SC 01/18/25 12:00 01/22/25 09:01 4,000 UNIT Laboratory Results Laboratory Tests 01/22/25 15:30 01/25/25 05:36 Microbiology Microbiology Date/Time Source Procedure Growth Status 01/20/25 21:16 Blood Blood Culture - Preliminary NO GROWTH AFTER 72 HOURS OF INCUBATION. Resulted Assessment/Plan Assessment/Plan Acute metabolic encephalopathy Bilateral pneumonia End-stage renal disease on hemodialysis Hypertension Atrial fibrillation Old CVA Type 2 diabetes Chronic anemia of chronic kidney disease Sepsis Thrombocytopenia due to sepsis Plan IV antibiotics Rocephin and doxycycline Nephrology consult for dialysis Watch closely Physical therapy evaluation Discussed with the at the bedside Full code Advance directives discussed for 18 minutes 01/18/2025: Bacteremia: Add vancomycin Pneumonia: Continue doxycycline and Rocephin End-stage renal disease: Dialysis today Labs are not done today yet Generalized weakness: Physical therapy recommended SNF but the patient does not want to go to a SNF, he says he can walk We will do another PT evaluation 01/19/2025: Continue vancomycin Continue doxycycline and Rocephin Hemodialysis per nephrology Blood culture is still showing Gram-positive cocci in clusters and pairs Sepsis: Thrombocytopenia: Improving 01/20/2025: Continue vancomycin and IV antibiotics for the bacteremia Bacteremia: Culture is still pending Hemodialysis per nephrology Continue physical therapy Thrombocytopenia: Improved Discharge planning for tomorrow once the blood culture is finalized 01/21/2025: Blood culture came back 1 bottle of staph epi Repeat blood culture was done last night, pending Echocardiogram not done yet Sepsis: Improved Thrombocytopenia: Improving End-stage renal disease: Hemodialysis today Bleeding from left AV graft: Vascular surgery has seen the patient, Dr. Oconnor has a put sutures in his arms stopped the bleeding and the plan is to take him tomorrow to do a histogram Dialysis was done this morning Hold the discharge Monitor closely The rest of the management will depend on the hospital course Plan discussed with: Patient Date of Service: Jan 25, 2025 Billing Provider: IONA CARBAJAL MD Common Visit Codes: [id number] INP/OBS CARE(HIGH) IONA CARBAJAL MD Jan 25, 2025 10:14
--- NOTE | 2025-01-25 10:26 | DVHOP2 ---
Operative Report - 2 Report Details Date: 01/25/25 Preop Diagnosis: Left arteriovenous graft bleeding. Postop Diagnosis: Left arteriovenous graft bleeding Surgeon: Vicente Oconnor MD Anesthesiologist: Local Anesthesia: Local Consent: The patient was informed of the risks and benefits of the procedure. These include but are not limited to complications of anesthesia, postoperative infection, incomplete relief of symptoms, recurrence of symptoms, damage to blood vessels, nerves and tendons, deep venous thrombosis, pulmonary embolism and possible need for repeat surgery in the future. Estimated Blood Loss: Minimal Indications for Surgery: Bleeding left arteriovenous graft uncontrolled Name of Procedure Performed Repair of arteriovenous graft bleeding Procedure Details Procedure Details: I was asked to see the patient. Patient underwent dialysis this morning. After needles were pulled bleeding would not stop. After approximately 45 minutes active bleeding was still noted. I was called to see the patient to control the bleeding. I evaluated the patient and found that it was then needle puncture most likely secondary to high venous pressure. The area was locally anesthetized with 1% lidocaine. At this point in time 3-0 Prolene suture was used to repair the puncture site with a [id number] suture. Two sutures were required. No further bleeding was noted sterile dressing was applied patient tolerated procedure well. Patient will require a fistulogram in the next 24 hours. Condition Good Disposition Still a Patient VICENTE OCONNOR Jr., MD Jan 25, 2025 10:26
[2025-01-25 10:47] LABS: Hematocrit 33.1 % (41.0-53.0); Hemoglobin 11.1 g/dL (13.5-17.5); Mean Corpuscular Hemoglobin 30.7 pg (28.0-32.0); Mean Corpuscular Volume 91.4 fL (80.0-100.0); Nucleated Red Blood Cells % 0.0 %
[2025-01-25 13:00] VITALS: BP 124/70; PULSE 83; RESP 16; TEMP 97.6; O2SAT 100
[2025-01-25] MEDS: VANCOMYCIN 500mg/100mL 100 ML IV ONE (14:16)
--- NOTE | 2025-01-25 14:44 | DVHPN2 ---
Progress Note Date Seen: Jan 25, 2025 Medical Necessity Reason Pt with a Central, PICC or Fol: No Subjective Patient reports: Other (pain rt UE) Review of Systems: MSK:Abnormal Objective vital signs Vital Sign Date Time Temp Pulse Resp B/P (MAP) Pulse Ox O2 Delivery O2 Flow Rate FiO2 01/25/25 11:23 166/82 01/25/25 11:22 101 01/25/25 09:00 97.2 16 97.2 01/25/25 05:00 100 01/24/25 20:00 Nasal Cannula* 2 28 Total Intake and Output 01/24/25 01/24/25 01/25/25 15:00 23:00 07:00 Intake Total 490 ml 450 ml 275 ml Balance 490 ml 450 ml 275 ml medications Current Medications Medications Dose Ordered Sig/Dwight Route Start Time Stop Time Status Last Admin Dose Admin Sodium Chloride 10 ml Q8HR IV 01/17/25 14:00 01/25/25 12:31 10 ML Acetaminophen/ Hydrocodone Bitart 1 tab Q4HP PRN PO 01/17/25 08:30 01/21/25 04:06 1 TAB Ondansetron HCl 4 mg Q4HP PRN IV 01/17/25 08:30 01/24/25 21:32 4 MG Docusate Sodium 100 mg BIDPRN PRN PO 01/17/25 08:30 01/24/25 21:43 100 MG Acetaminophen 650 mg Q6HP PRN PO 01/17/25 08:30 01/25/25 14:09 650 MG Diagnostic Test (Pha) 1 strip ACHS 01/17/25 11:30 01/25/25 11:28 1 STRIP Insulin Human Regular HS SC 01/17/25 22:00 01/23/25 21:24 2 UNITS Insulin Human Regular AC SC 01/17/25 11:30 01/21/25 16:43 2 UNITS Dextrose 50 ml UD PRN IV 01/17/25 08:45 Ceftriaxone Sodium 50 ml @ 100 mls/hr DAILY@09 IV 01/18/25 09:00 01/25/25 11:16 100 MLS/HR Doxycycline Hyclate 100 ml @ 100 mls/hr BID IV 01/17/25 22:00 01/25/25 10:00 100 MLS/HR Ipratropium [place] 0.5 mg Q4HPRN PRN NEB 8/4/25 16:15 Cancel Albuterol 2.5 mg Q4HPRN PRN NEB 01/17/25 16:15 Cancel Apixaban 2.5 mg BID PO 01/17/25 22:00 01/24/25 21:34 2.5 MG Atorvastatin Calcium 20 mg HS PO 01/17/25 22:00 01/24/25 21:34 20 MG Metoprolol Succinate 50 mg DAILY PO 01/18/25 10:00 01/25/25 11:22 50 MG Aspirin 81 mg DAILY PO 01/18/25 10:00 01/25/25 11:21 81 MG Nifedipine 60 mg DAILY PO 01/18/25 10:00 01/25/25 11:23 60 MG Vancomycin HCl 0 ml @ 0 mls/hr UD IV 01/18/25 09:30 Epoetin Tacho-epbx 4,000 unit TUTHSA SC 01/18/25 12:00 01/25/25 11:28 4,000 UNIT Examination: GENERAL:Normal, HEENT:Normal, NECK:Normal, LUNGS:Normal, CVS:Normal, ABDOMEN:Normal, MSK:Abnormal, SKIN:Normal, NEURO:Normal, :Normal laboratory and microbiology Laboratory Tests 01/25/25 05:36 01/22/25 15:30 Test 01/22/25 15:30 Range/Units Serum Glucose 131 H 74-106 mg/dL Microbiology Date/Time Source Procedure Growth Status 01/20/25 21:16 Blood Blood Culture - Preliminary NO GROWTH AFTER 72 HOURS OF INCUBATION. Resulted Problem List/Assessment/Plan Problem List/Assessment/Plan End-stage renal disease Sepsis secondary to Gram-positive bacteremia Anemia due to chronic kidney disease bleeding AVF recs HD 01/25 bleeding AVF --vasc sutured--pending fistulogram check h and h rue pain---r/o clot vs infiltration Plan discussed with: Patient, Spouse My Orders My Orders Orders - MANDEEP MENCHACA MD Procedure Category Date Status Time Hemodialysis Orders ORDERS 01/25/25 Transmitted 04:00 Hemoglobin & LAB 01/25/25 Logged Hematocrit 13:07 Dietary Evaluation Review Comments: offer soymild with meals encourage and monitor PO intakes Nepro BID PO supplements Expected Outcomes/Goals: Recover from bacteremia, gradual wt gain MANDEEP MENCHACA MD Jan 25, 2025 14:44
--- NOTE | 2025-01-25 16:16 | DVH ---
RIGHT Upper Extremity Venous Duplex Clinical History: Pain Comparison: None Technique: Duplex Doppler evaluation of the venous system of the RIGHT lower neck and upper extremity including color Doppler and spectral/pulsed waveform analysis was performed. Findings: The internal jugular vein demonstrates appropriate compressibility and waveform variability. The subclavian vein is patent on color Doppler evaluation without intraluminal thrombus and demonstra collin waveform variability. The visualized portion of the brachiocephalic vein is patent on color Doppler evaluation without intr aluminal thrombus and demonstrates waveform variability. The axillary vein demonstrates appropriate compressibility and waveform variability. The brachial veins demonstrate appropriate compressibility and patency on Doppler evaluation. The basilic vein demonstrates appropriate compressibility and patency on Doppler evaluation. The cephalic vein demonstrates appropriate compressibility and patency on Doppler evaluation. Impression: No venous thrombus identified in the RIGHT upper extremity vessels evaluated above.
[2025-01-25 17:00] VITALS: BP 143/61; PULSE 79; RESP 17; TEMP 97.6; O2SAT 100
[2025-01-25 19:08] LABS: Hematocrit 34.7 % (41.0-53.0); Hemoglobin 11.5 g/dL (13.5-17.5)
[2025-01-25 20:52] VITALS: BP 126/71; PULSE 75; RESP 17; TEMP 98.2; O2SAT 100
[2025-01-26] VITALS (8 sets, daily range): BP systolic 125–144; BP diastolic 58–75; PULSE 68–80; RESP 14–18; TEMP 97.7–98.2; O2SAT 94–100
[2025-01-26] MEDS: IODIXANOL 320MG/ML 100ML BTL IV ONE (07:41)
[2025-01-26] MEDS: LIDOCAINE 2%HCL (LOCAL ANESTH.) INJ 20ML MDV ONE (07:46)
[2025-01-26] MEDS: fentaNYL CITRATE 100 MCG/2 ML VL ONE (07:46)
[2025-01-26] MEDS: MIDAZOLAM HCL 2MG/2ML 2ml VIAL (1mg/ml) ONE (07:46)
[2025-01-26] MEDS: ONDANSETRON HCL 4 MG/2 ML VIAL ONE ×2 (07:46→08:01)
--- NOTE | 2025-01-26 08:34 | DVHOP2 ---
Operative Report - 2 Report Details Date: 01/26/25 Preop Diagnosis: Left arteriovenous graft bleeding. Postop Diagnosis: Left arteriovenous graft bleeding Surgeon: Vicente Oconnor MD Anesthesiologist: Local Anesthesia: Mac, Local Consent: The patient was informed of the risks and benefits of the procedure. These include but are not limited to complications of anesthesia, postoperative infection, incomplete relief of symptoms, recurrence of symptoms, damage to blood vessels, nerves and tendons, deep venous thrombosis, pulmonary embolism and possible need for repeat surgery in the future. Estimated Blood Loss: Minimal Name of Procedure Performed Left arm arteriovenous graft fistulogram/venous angioplasty Procedure Details Procedure Details: Patient was identified in the preop hold area is being Mr. [place] he was consented and preopped by myself he was brought back to the malthouse laborer placed in the malthouse laborer table in supine position after adequate induction of anesthesia the left arm was prepped and draped in normal surgical fashion. 1% lidocaine was injected in the apex portion of the AV graft. The graft was then accessed with a 4 [place] micropuncture needle the graft was then studied with contrast fistulogram was performed that demonstrated widely patent left upper arm loop AV graft. There was a high-grade stenosis at the distal anastomosis approximately 70%. A central venogram was also performed which demonstrated widely patent axillary vein as well as central veins including SVC. At this point in time a Bentson wire was then passed across the stenosis. Using 8 x 4 balloon the venous anastomosis was angioplastied completion venogram demonstrated 20% residual stenosis. Excellent flow was noted and good thrill and bruit were obtained. The wires and catheters were removed. A pursestring suture was applied to the puncture site with a 4-0 Monocryl suture manual pressure was held afterwards patient was taken to the PACU in stable condition Condition Good Disposition Still a Patient VICENTE OCONNOR Jr., MD Jan 26, 2025 08:34
--- NOTE | 2025-01-26 10:14 | DVHDS2 ---
Discharge Summary Date of Admission Jan 17, 2025 at 08:17 Date of Discharge: Jan 26, 2025 Labs/Diagnostic Data: Laboratory Results Test 01/26/25 06:11 01/26/25 05:32 01/25/25 18:36 01/25/25 05:36 POC Glucose 78 mg/dl (70-106) Creatinine 7.53 mg/dL (0.700-1.30) Glomerular Filtration Rate Calc 6 mL/min (>90) Random Vancomycin Level 19.9 ug/mL (5-10) Hemoglobin 11.5 g/dL (13.5-17.5) Hematocrit 34.7 % (41.0-53.0) White Blood Count 8.0 10^3/uL (4.4-10.8) Red Blood Count 3.62 10^6/uL (4.5-5.90) Mean Corpuscular Volume 91.4 fL (80.0-100.0) Mean Corpuscular Hemoglobin 30.7 pg (28.0-32.0) Mean Corpuscular Hemoglobin Concent 33.6 g/dL (32.0-36.0) Red Cell Distribution Width 18.3 % (11.8-14.3) Platelet Count 155 10^3/uL (140-450) Mean Platelet Volume 10.0 fL (6.9-10.8) Neutrophils (%) (Auto) 67.9 % (37.0-80.0) Lymphocytes (%) (Auto) 14.7 % (10.0-50.0) Monocytes (%) (Auto) 15.0 % (0.0-12.0) Eosinophils (%) (Auto) 1.6 % (0.0-7.0) Basophils (%) (Auto) 0.8 % (0.0-2.0) Neutrophils # (Auto) 5.4 10 ^3/uL (1.6-8.6) Lymphocytes # (Auto) 1.2 10 ^3/uL (0.4-5.4) Monocytes # (Auto) 1.2 10 ^3/uL (0-1.3) Eosinophils # (Auto) 0.1 10 ^3/uL (0-0.8) Basophils # (Auto) 0.1 10 ^3/uL (0-0.2) Nucleated Red Blood Cells 0.0 % Test 01/23/25 20:03 01/22/25 15:30 01/21/25 06:15 01/19/25 05:51 Erythrocyte Sedimentation Rate 12 mm/hr (0-20) Differential Total Cells Counted 100.0 (100) Neutrophils % (Manual) 70 (37.0-80.0) Band Neutrophils % (Manual) 0 Lymphocytes % (Manual) 24 (10.0-50.0) Monocytes % (Manual) 2 (0-12) Eosinophils % (Manual) 4 (0-7) Basophils % (Manual) 0 (0.0-2.0) Metamyelocytes % (manual) 0 Myelocytes % (Manual) 0 Promyelocytes % (Manual) 0 Blast Cells % (Manual) 0 Reactive Lymphocytes 0 Platelet Estimate Adequate Large Platelets Few [place] Cells Few Schistocytes Few Sodium Level 137 mmol/L (136-145) Potassium Level 5.1 mmol/L (3.5-5.1) Chloride Level 96 mmol/L (98-107) Carbon Dioxide Level 27 mmol/L (20-31) Anion Gap 14 (5-15) Blood Urea Nitrogen 53 mg/dL (9-23) BUN/Creatinine Ratio 8.0 (10.0-20.0) Serum Glucose 131 mg/dL (74-106) Hemoglobin A1c 4.9 % A1C (<5.7) Calcium Level 8.5 mg/dL (8.7-10.4) Magnesium Level 1.6 mg/dL (1.6-2.6) Total Bilirubin 0.4 mg/dL (0.2-1.0) Aspartate Amino Transferase (AST) 27 U/L (13-40) Alanine Aminotransferase (ALT) < 9 U/L (7-40) Alkaline Phosphatase 170 U/L (46-116) Total Protein 6.3 g/dL (5.7-8.2) Albumin 3.6 g/dL (3.2-4.8) Iron Level 58 ug/dL (65-175) Total Iron Binding Capacity 218 ug/dL (250-425) Percent Iron Saturation 26.6 % (20-55) Ferritin 60.0 ng/mL (22-322) Test 01/18/25 20:26 01/18/25 11:15 01/17/25 11:21 01/17/25 02:51 Phosphorus Level 2.9 mg/dL (2.4-5.1) Parathyroid Hormone (Intact) 394.8 pg/mL (18.4-80.1) Macrocytosis Marked Hepatitis A IgM Antibody Negative Hepatitis B Surface Antigen Negative (Negative) Hepatitis B Core IgM Antibody Negative (Negative) Hepatitis C Antibody Negative (Negative) Ammonia < 10 umol/L (11-32) Troponin I High Sensitivity 18 ng/L (</=54) B-Type Natriuretic Peptide 727.46 pg/mL (0-100) Lactic Acid Level 1.2 mmol/L (0.4-2.0) Plasma/Serum Blood Alcohol < 3.0 mg/dL (<10) Other Laboratory Tests 01/26/25 05:32 01/25/25 18:36 01/25/25 05:36 01/22/25 15:30 Brief Hx & Hospital Course: Final diagnoses: Acute metabolic encephalopathy Bilateral pneumonia End-stage renal disease on hemodialysis Hypertension Atrial fibrillation Old CVA Type 2 diabetes Chronic anemia of chronic kidney disease Sepsis Thrombocytopenia due to sepsis Severe right heart failure Bleeding left AV graft s/p angioplasty 89-year-old male who was supposed to be discharged yesterday after dialysis but once he finished dialysis he was having profuse bleeding from the left arm AV graft and therefore we called vascular surgery and the bleeding was thought and therefore after that Dr. Lindsey recommended a fistulogram to be done which was done today and he required angioplasty to the stenosis. He is doing well postoperatively today He was cleared for discharge I discussed the case with Dr. Collins, she advised for him to be discharged today and go from here to dialysis directly to be dialyzed today and then resume his schedule as before on Friday with the and Friday Resume the home same home medications Condition at Discharge: Good Final Diagnosis/Problems List Acute metabolic encephalopathy Bilateral pneumonia End-stage renal disease on hemodialysis Hypertension Atrial fibrillation Old CVA Type 2 diabetes Chronic anemia of chronic kidney disease Sepsis Thrombocytopenia due to sepsis Severe right heart failure Bleeding left AV graft s/p angioplasty Discharge Disposition: Home SNF Discharge Will this Physician continue t: No Discharge Instruct/Medications Diet: Consistent carbohydrate, Cardiac 2g Na,low cholest Activity: Light activity Follow Up/Referral: Dialysis today Medications: Same home medications Scheduled Apixaban Base (Eliquis), 2.5 MG PO BID, (Reported) Aspirin (Aspirin), 81 MG PO DAILY, (Reported) Atorvastatin Calcium (Atorvastatin Calcium), 1 TAB PO HS, (Reported) Metoprolol Succinate (Metoprolol Succinate Er), 1 TAB PO DAILY, (Reported) Nifedipine (Nifedipine Er), 1 TAB PO DAILY, (Reported) Discharge Statement: "Patient was advised to return to the ER or call 911 if any headaches, dizziness, shortness of breath, chest pain, abdominal pain, bleeding, fevers, or worsening of medical condition. Patient was counseled about treatment plan, medications, possible side effects, patientverbalized understanding. All questions were answered to the best of my ability. This discharge took greater then 30 minutes in planning, reviewing documentation, counseling the patient, and discussing with other team members." ASSESSMENT ASSESSMENT Assessment Acute metabolic encephalopathy Bilateral pneumonia End-stage renal disease on hemodialysis Hypertension Atrial fibrillation Old CVA Type 2 diabetes Chronic anemia of chronic kidney disease Sepsis Thrombocytopenia due to sepsis Severe right heart failure Bleeding left AV graft s/p angioplasty Date of Service: Jan 26, 2025 Billing Provider: IONA CARBAJAL MD Common Visit Codes: NOT BILLABLE IONA CARBAJAL MD Jan 26, 2025 10:14
--- NOTE | 2025-01-26 17:09 | DVHPN2 ---
Progress Note Date Seen: Jan 26, 2025 Medical Necessity Reason Pt with a Central, PICC or Fol: No Subjective Patient reports: No new complaints Review of Systems: Deferred Objective vital signs Vital Sign Date Time Temp Pulse Resp B/P (MAP) Pulse Ox O2 Delivery O2 Flow Rate FiO2 01/26/25 10:00 Room Air* 0 21 01/26/25 09:58 142/75 01/26/25 09:58 66 01/26/25 09:30 97.7 17 94 97.7 Total Intake and Output 01/25/25 01/25/25 01/26/25 15:00 23:00 07:00 Intake Total 0 ml 480 ml 100 ml Output Total 0 ml Balance 0 ml 480 ml 100 ml medications Current Medications Medications Dose Ordered Sig/Dwight Route Start Time Stop Time Status Last Admin Dose Admin Sodium Chloride 10 ml Q8HR IV 01/17/25 14:00 01/26/25 06:17 10 ML Ondansetron HCl 4 mg Q4HP PRN IV 01/17/25 08:30 01/26/25 09:57 4 MG Docusate Sodium 100 mg BIDPRN PRN PO 01/17/25 08:30 01/24/25 21:43 100 MG Acetaminophen 650 mg Q6HP PRN PO 01/17/25 08:30 01/25/25 14:09 650 MG Diagnostic Test (Pha) 1 strip ACHS 01/17/25 11:30 01/26/25 06:18 1 STRIP Insulin Human Regular HS SC 01/17/25 22:00 01/25/25 22:45 2 UNITS Insulin Human Regular AC SC 01/17/25 11:30 01/21/25 16:43 2 UNITS Dextrose 50 ml UD PRN IV 01/17/25 08:45 Ceftriaxone Sodium 50 ml @ 100 mls/hr DAILY@09 IV 01/18/25 09:00 01/26/25 10:04 100 MLS/HR Doxycycline Hyclate 100 ml @ 100 mls/hr BID IV 01/17/25 22:00 01/25/25 22:43 100 MLS/HR Ipratropium [place] 0.5 mg Q4HPRN PRN NEB 01/17/25 16:15 Cancel Albuterol 2.5 mg Q4HPRN PRN NEB 01/17/25 16:15 Cancel Apixaban 2.5 mg BID PO 01/17/25 22:00 01/26/25 10:09 2.5 MG Atorvastatin Calcium 20 mg HS PO 01/17/25 22:00 01/25/25 22:44 20 MG Metoprolol Succinate 50 mg DAILY PO 01/18/25 10:00 01/26/25 09:58 50 MG Aspirin 81 mg DAILY PO 01/18/25 10:00 01/26/25 09:59 81 MG Nifedipine 60 mg DAILY PO 01/18/25 10:00 01/26/25 09:58 60 MG Vancomycin HCl 0 ml @ 0 mls/hr UD IV 01/18/25 09:30 Epoetin Tacho-epbx 4,000 unit TUTHSA SC 01/18/25 12:00 01/25/25 11:28 4,000 UNIT Examination: GENERAL:Normal, LUNGS:Normal, MSK:Normal, NEURO:Normal laboratory and microbiology Laboratory Tests 01/26/25 05:32 01/25/25 18:36 01/25/25 05:36 01/22/25 15:30 Test 01/22/25 15:30 Range/Units Serum Glucose 131 H 74-106 mg/dL Microbiology Date/Time Source Procedure Growth Status 01/20/25 21:16 Blood Blood Culture - Final NO GROWTH AFTER 5 DAYS OF INCUBATION. Complete Problem List/Assessment/Plan Problem List/Assessment/Plan End-stage renal disease Sepsis secondary to Gram-positive bacteremia Anemia due to chronic kidney disease bleeding AVF recs HD 01/25 bleeding AVF --vasc sutured--s/p fistulogram-angioplasty --high grade stenosis Plan discussed with: Patient, Other Dietary Evaluation Review Comments: offer soymild with meals encourage and monitor PO intakes Nepro BID PO supplements Expected Outcomes/Goals: Recover from bacteremia, gradual wt gain MANDEEP MENCHACA MD Jan 26, 2025 17:09
== END 2025-01-26 11:00 | disposition home health service (06) | DRG 853 ==
LOC: ER 02:07 → EDBD 02:07 → OVERFLOW 08:17 → EAST 21:54
PROVIDERS: ADMIT Internal Medicine Geriatric Medicine; ATTEND Internal Medicine Geriatric Medicine
PROC: 5A1D70Z Performance of Urinary Filtration, Intermittent, Less than 6 Hours Per Day (ICD-10-PCS; 2025-01-14)
PROC: 5A1D70Z Performance of Urinary Filtration, Intermittent, Less than 6 Hours Per Day (ICD-10-PCS; 2025-01-18)
PROC: 5A1D70Z Performance of Urinary Filtration, Intermittent, Less than 6 Hours Per Day (ICD-10-PCS; 2025-01-21)
PROC: 05QY0ZZ Repair Upper Vein, Open Approach (ICD-10-PCS; 2025-01-25)
PROC: 057Y0ZZ Dilation of Upper Vein, Open Approach (ICD-10-PCS; principal; 2025-01-26)
PROC: B51W1ZZ Fluoroscopy of Dialysis Shunt/Fistula using Low Osmolar Contrast (ICD-10-PCS; 2025-01-26)
PROC: B51N1ZZ Fluoroscopy of Left Upper Extremity Veins using Low Osmolar Contrast (ICD-10-PCS; 2025-01-26)
DX: A41.59 Other Gram-negative sepsis (principal); G93.41 Metabolic encephalopathy; N18.6 End stage renal disease; J15.9 Unspecified bacterial pneumonia; J15.69 Pneumonia due to other Gram-negative bacteria; I13.2 Hypertensive heart and chronic kidney disease with heart failure and with stage 5 chronic kidney disease, or end stage renal disease; J98.4 Other disorders of lung; I48.91 Unspecified atrial fibrillation; R58 Hemorrhage, not elsewhere classified; D63.1 Anemia in chronic kidney disease; E11.22 Type 2 diabetes mellitus with diabetic chronic kidney disease; E78.5 Hyperlipidemia, unspecified; I07.1 Rheumatic tricuspid insufficiency; D69.59 Other secondary thrombocytopenia; I50.810 Right heart failure, unspecified; E11.65 Type 2 diabetes mellitus with hyperglycemia; Z99.2 Dependence on renal dialysis; Z86.73 Personal history of transient ischemic attack (TIA), and cerebral infarction without residual deficits
CPT/HCPCS: 36415; 70450; 71045; 73030; 80048; 80053; 80074; 80202; 80320; 82140; 82310; 82565; 82728; 82962; 83036; 83540; 83550; 83605; 83735; 83880; 83970; 84100; 84484; 85007; 85014; 85018; 85025; 85027; 85652; 86850; 86900; 86901; 87040; 87077; 87186; 90935; 93005; 93306; 93971; 94640; 96365; 97110; 97116; 97163; 99152; C1894; G0378; J1815; J2003; J2250; J2405; P9047; Q9967